=== PATIENT | male | born 1930 | race Caucasian/White ===

== ENCOUNTER 2018-11-27 14:49 | Inpatient (IN) ==
[2018-11-27] MEDS ORDERED: Sod Chloride 0.9% Inj 1,000 ML IV.SIG SCH (15:30)
--- NOTE | 2018-11-27 15:30 | ED ---
HPI General Chief complaint: Fever Stated complaint: fever Time Seen by Provider: 11/27/18 15:03 Source: patient, family and EMS Mode of arrival: EMS Limitations: altered mental status History of Present Illness HPI narrative: This 88-year-old male is brought by paramedics. His noted that he was very tired this morning would not get out of bed. He had gotten out of bed but then went back to sleep. He does have a history of some memory problems. She he went to see Dr. Chapman yesterday. He is evaluating him for incontinence. He did have a cystoscopy done yesterday. He says he was given a tablet to take at home but he does not think he took it. He did have some vomiting this morning his found him at noon shaking and shivering. He was awake. says his temperature was 102 at home. He is currently on lisinopril Protonix and Rapaflo. He has not been coughing. He has been urinating frequently Related Data Home Medications Medication Instructions Recorded Confirmed lisinopril 10 mg PO DAILY 11/27/18 11/27/18 pantoprazole [Protonix] 40 mg PO DAILY 11/27/18 11/27/18 silodosin [Rapaflo] 8 mg PO DAILY 11/27/18 11/27/18 Allergies Allergy/AdvReac Type Severity Reaction Status Date / Time No Known Allergies Allergy Uncoded 10/22/14 11:30 Review of Systems ROS: all other systems reviewed are negative Constitutional Reports chills, Reports fever(s) and Reports lethargy Respiratory Denies cough Genitourinary Reports urinary incontinence [facility] Medical History Medical History GERD (gastroesophageal reflux disease) (Acute) HTN (hypertension) (Acute) Social History Social History Substance History: No History of Abuse Smoking Status: Unknown if ever smoked How Often Do You Have a Drink Containing Alcohol: Unable to Obtain Recent Travel in [facility] within the Last 8 Weeks: No Recent Out of Country Travel within the Last 8 Weeks: No Immunization History Tetanus Immunization: Unsure Exam Narrative Exam Narrative: GENERAL: Well-developed male. He is cooperative. Temp on arrival is 100.0 with pulse of 103 SKIN: Focused skin assessment warm/dry. HEAD: Atraumatic. Normocephalic. EYES: Pupils equal and round. No scleral icterus. No injection or drainage. ENT: No nasal bleeding or discharge. Mucous membranes pink and moist. NECK: Trachea midline. No JVD. CARDIOVASCULAR: Regular rate and rhythm. There is a systolic murmur RESPIRATORY: No accessory muscle use. Clear to auscultation. Breath sounds equal bilaterally. GASTROINTESTINAL: Abdomen soft, non-tender, nondistended. Hepatic and splenic margins not palpable. MUSCULOSKELETAL: No obvious deformities. No clubbing. No cyanosis. No edema. NEUROLOGICAL: Awake and alert. No obvious cranial nerve deficits. Motor grossly within normal limits. Normal speech. He is not oriented to the year though he is oriented to the day of the year PSYCHIATRIC: Insight appears somewhat limited Course Initial Documented Vital Signs Temperature 100.0 F H 11/27/18 14:56 Pulse Rate 103 H 11/27/18 14:56 Respiratory Rate 18 11/27/18 14:56 Blood Pressure 186/91 H 11/27/18 14:56 Pulse Oximetry 96 11/27/18 14:56 Last Documented Vital Signs Temperature 100.0 F H 11/27/18 14:56 Pulse Rate 103 H 11/27/18 14:56 Respiratory Rate 18 11/27/18 14:56 Blood Pressure 186/91 H 11/27/18 14:56 Pulse Oximetry 96 11/27/18 14:56 Sign Out Sign Out Data: Patient Sign Out occurred on 11/27/18 at 16:14. Patient's care was discussed, and care was transferred from Francesco Castellanos MD to Soren Medina MD. Sign Out Comment: Patient had temp of 102-103 at home. Sepsis workup is underway Last updated by Francesco Castellanos MD at 11/27/18 15:55 Post-Handoff Eval: This case is checked out to me by Dr. Palacio at 4 PM. He recommended hospitalization after the workup is complete.'s an 88-year-old demented male with temp of 103 today and some generalized global symptoms such as weakness and lethargy. Source is not clear. Urine is clean and chest x-ray normal. He has no meningeal signs on exam. He has been given IV antibiotic after blood cultures were obtained. Case is reviewed with hospitalist who recommends observation status. Medical Decision Making MDM Narrative Medical Screen Exam Complete: Yes Emergency Medical Condition: Yes Differential Diagnosis Differential Diagnosis: Differential includes delirium, sepsis, UTI, pneumonia Lab Data Result diagrams: 11/27/18 15:20 11/27/18 15:20 Lab Results 11/27/18 11/27/18 11/27/18 Range/Units 15:20 15:20 15:20 CBC w Diff Slide review pending WBC 12.9 H (4.0-11.0) th/mm3 RBC 4.89 (4.50-5.90) mil/mm3 Hgb 14.4 (13.0-17.0) gm/dL Hct 43.9 (39.0-51.0) % MCV 89.7 (80.0-100.0) fL MCH 29.3 (27.0-34.0) pg MCHC 32.7 (32.0-36.0) % RDW 13.9 (11.6-17.2) % Plt Count 191 (150-450) th/mm3 MPV 8.9 (7.0-11.0) fL Neut % (Auto) 88.8 H (16.0-70.0) % Lymph % (Auto) 3.1 L (9.0-44.0) % [place] % (Auto) 6.3 (0.0-8.0) % Eos % (Auto) 0.2 (0.0-4.0) % Baso % (Auto) 1.6 (0.0-2.0) % Neut # (Auto) 11.5 H (1.8-7.7) th/mm3 Lymph # (Auto) 0.4 L (1.0-4.8) th/mm3 [place] # (Auto) 0.8 (0.0-0.9) th/mm3 Eos # (Auto) 0.0 (0.0-0.4) th/mm3 Baso # (Auto) 0.2 (0.0-0.2) th/mm3 WBC Differential Manual diff final Seg Neuts % (Manual) 88 H (16-70) % Band Neuts % (Manual) 5 (0-6) % Lymphocytes % (Manual) 2 L (9-44) % Monocytes % (Manual) 5 (0-8) % Abs Neuts (Manual) 12.0 H (1.8-7.7) th/mm3 Differential Comment . Platelet Estimate Normal (Normal) Platelet Morphology Normal (Normal) Sodium 142 (136-145) meq/L Potassium 3.4 L (3.5-5.1) meq/L Chloride 111 H (98-107) meq/L Carbon Dioxide 22.1 (21.0-32.0) meq/L Anion Gap 9 (5-15) meq/L BUN 22 H (7-18) mg/dL Creatinine 0.93 (0.60-1.30) mg/dL Estimated GFR 77 L (>89) mL/min Random Glucose 116 H (74-106) mg/dL Lactic Acid 1.5 (0.4-2.0) mmol/L Calcium 7.8 L (8.5-10.1) mg/dL Magnesium 1.6 (1.5-2.5) mg/dL Total Bilirubin 0.8 (0.2-1.0) mg/dL AST 15 (15-37) U/L ALT 18 (12-78) U/L Alkaline Phosphatase 58 (45-117) U/L Total Protein 7.1 (6.4-8.2) g/dL Albumin 3.5 (3.4-5.0) g/dL Urine Color (Yellw/Straw) Urine Clarity (Clear) Urine pH (5.0-8.5) Ur Specific [place] (1.002-1.035) Urine Protein (Neg-Trace) mg/dL Urine Glucose (UA) (Negative) mg/dL Urine Ketones (Negative) mg/dL Urine Occult Blood (Negative) Urine Nitrate (Negative) Urine Bilirubin (Negative) Urine Urobilinogen (Less than 2) mg/dL Ur Leukocyte Esterase (Negative) Urine RBC (0-3) /hpf Urine WBC (0-5) /hpf Micro UA Comment Ur Microscopic Review Urine Culture Comments 11/27/18 Range/Units 15:30 CBC w Diff WBC (4.0-11.0) th/mm3 RBC (4.50-5.90) mil/mm3 Hgb (13.0-17.0) gm/dL Hct (39.0-51.0) % MCV (80.0-100.0) fL MCH (27.0-34.0) pg MCHC (32.0-36.0) % RDW (11.6-17.2) % Plt Count (150-450) th/mm3 MPV (7.0-11.0) fL Neut % (Auto) (16.0-70.0) % Lymph % (Auto) (9.0-44.0) % Churchill % (Auto) (0.0-8.0) % Eos % (Auto) (0.0-4.0) % Baso % (Auto) (0.0-2.0) % Neut # (Auto) (1.8-7.7) th/mm3 Lymph # (Auto) (1.0-4.8) th/mm3 [place] # (Auto) (0.0-0.9) th/mm3 Eos # (Auto) (0.0-0.4) th/mm3 Baso # (Auto) (0.0-0.2) th/mm3 WBC Differential Seg Neuts % (Manual) (16-70) % Band Neuts % (Manual) (0-6) % Lymphocytes % (Manual) (9-44) % Monocytes % (Manual) (0-8) % Abs Neuts (Manual) (1.8-7.7) th/mm3 Differential Comment Platelet Estimate (Normal) Platelet Morphology (Normal) Sodium (136-145) meq/L Potassium (3.5-5.1) meq/L Chloride (98-107) meq/L Carbon Dioxide (21.0-32.0) meq/L Anion Gap (5-15) meq/L BUN (7-18) mg/dL Creatinine (0.60-1.30) mg/dL Estimated GFR (>89) mL/min Random Glucose (74-106) mg/dL Lactic Acid (0.4-2.0) mmol/L Calcium (8.5-10.1) mg/dL Magnesium (1.5-2.5) mg/dL Total Bilirubin (0.2-1.0) mg/dL AST (15-37) U/L ALT (12-78) U/L Alkaline Phosphatase (45-117) U/L Total Protein (6.4-8.2) g/dL Albumin (3.4-5.0) g/dL Urine Color Straw (Yellw/Straw) Urine Clarity Clear (Clear) Urine pH 6.5 (5.0-8.5) Ur Specific [place] 1.010 (1.002-1.035) Urine Protein Negative (Neg-Trace) mg/dL Urine Glucose (UA) Negative (Negative) mg/dL Urine Ketones Negative (Negative) mg/dL Urine Occult Blood Trace (Negative) Urine Nitrate Negative (Negative) Urine Bilirubin Negative (Negative) Urine Urobilinogen 0.2 (Less than 2) mg/dL Ur Leukocyte Esterase Negative (Negative) Urine RBC 0-3 (0-3) /hpf Urine WBC 0-5 (0-5) /hpf Micro UA Comment Culture not ind Ur Microscopic Review Microscopic reviewed Urine Culture Comments Culture not ind Imaging Data Radiologist's impression: Chest X-Ray 11/27/18 15:12 CONCLUSION: No acute intrathoracic disease. Head CT 11/27/18 15:12 CONCLUSION: 1. No focal or acute intracranial hemorrhage. 2. Bilateral cortical atrophy and chronic white matter changes characteristic for patient's age. 3. 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 . Discharge Plan Discharge Disposition Patient Disposition: ED Admit(ED Internal Use Only) Discharge Details Diagnosis: Fever and chills, Generalized weakness Physicians Team ED Provider: Soren Medina Primary Care Provider: [facility] /Orders / Referrals /Forms Prescriptions: No Action pantoprazole [Protonix] 40 mg Tablet,Delayed Release (Dr/Ec) 40 mg PO DAILY RF: 0 lisinopril 10 mg Tablet 10 mg PO DAILY RF: 0 silodosin [Rapaflo] 8 mg Capsule 8 mg PO DAILY RF: 0 Status ED Status: With Doctor
[2018-11-27 15:39] LABS: Bilirubin,Urine Negative (Negative); Clarity,Urine Clear (Clear); Glucose,Urine (UA) Negative (Negative); Leukocyte Esterase,Urine Negative (Negative); Nitrite,Urine Negative (Negative); PH,Urine 6.5 (5.0-8.5); Urobilinogen,Urine 0.2 mg/dL (Less than 2)
[2018-11-27 15:43] LABS: Baso # (Auto) 0.2 th/mm3 (0.0-0.2); Baso % (Auto) 1.6 % (0.0-2.0); Eos % (Auto) 0.2 % (0.0-4.0); Hematocrit 43.9 % (39.0-51.0); Hemoglobin 14.4 gm/dL (13.0-17.0); Lymph # (Auto) 0.4 th/mm3 (1.0-4.8); Lymph % (Auto) 3.1 % (9.0-44.0); Mean Corpuscular HGB Conc 32.7 % (32.0-36.0); Mean Corpuscular Hemoglobin 29.3 pg (27.0-34.0); Mean Corpuscular Volume 89.7 fL (80.0-100.0); Mean Platelet Volume 8.9 fL (7.0-11.0); Mono # (Auto) 0.8 th/mm3 (0.0-0.9); Mono % (Auto) 6.3 % (0.0-8.0); Neut # (Auto) 11.5 th/mm3 (1.8-7.7); Neut % (Auto) 88.8 % (16.0-70.0); Platelet Count 191 th/mm3 (150-450); Red Blood Count 4.89 mil/mm3 (4.50-5.90); Red Cell Distribution Width 13.9 % (11.6-17.2); White Blood Count 12.9 th/mm3 (4.0-11.0)
[2018-11-27 15:56] LABS: Color,Urine Straw (Yellw/Straw)
[2018-11-27 15:58] LABS: RBC,Urine 0-3 /hpf (0-3)
[2018-11-27 15:59] LABS: WBC,Urine 0-5 /hpf (0-5)
[2018-11-27 15:59] LABS: Chloride 111 meq/L (98-107); Potassium 3.4 meq/L (3.5-5.1); Sodium 142 meq/L (136-145)
[2018-11-27] MEDS ORDERED: Piperacil/Tazo 4.5 GM Premix 4.5 GM/100 ML BAG IV.SIG SCH (16:00)
[2018-11-27 16:03] LABS: Albumin 3.5 g/dL (3.4-5.0); Anion Gap 9 meq/L (5-15); Blood Urea Nitrogen 22 mg/dL (7-18); Calcium 7.8 mg/dL (8.5-10.1); Carbon Dioxide 22.1 meq/L (21.0-32.0); Glucose,Random 116 mg/dL (74-106); Magnesium 1.6 mg/dL (1.5-2.5)
[2018-11-27 16:06] LABS: Alanine Aminotransferase 18 U/L (12-78); Aspartate Aminotransferase 15 U/L (15-37); Glomerular Filtration Rate 77 mL/min (>89)
--- NOTE | 2018-11-27 16:06 | XR ---
EXAM DATE: 11/27/2018 3:48 PM EST AGE/SEX: 88 years / Male INDICATIONS: Fever. CLINICAL DATA: This is the patient's initial encounter. Patient reports that signs and symptoms have been present for 1 day and indicates a pain score of Nonresponsive. MEDICAL/SURGICAL HISTORY: Non-responsive. Abdominal aortic aneurysm repair. COMPARISON: No prior exams available for comparison. FINDINGS: A single AP view of the chest demonstrates the lungs to be symmetrically aerated without evidence of mass, infiltrate or effusion. The cardiomediastinal contours are unremarkable. Osseous structures a re intact. There are some old healed right-sided rib fractures. CONCLUSION: No acute intrathoracic disease. Electronically signed by: Rj Navarro MD Board Certified Radiologist 11/27/2018 4:05 PM EST
[2018-11-27 16:08] LABS: Total Protein 7.1 g/dL (6.4-8.2)
[2018-11-27 16:09] LABS: Alkaline Phosphatase 58 U/L (45-117)
--- NOTE | 2018-11-27 16:23 | CT ---
EXAM DATE: 11/27/2018 4:19 PM EST AGE/SEX: 88 years / Male INDICATIONS: Altered mental status. Fever. CLINICAL DATA: This is the patient's initial encounter. Patient reports that signs and symptoms have been present for 1 day and indicates a pain score of 0/10. MEDICAL/SURGICAL HISTORY: Gastroesophageal reflux disease. Hypertension. None. RADIATION DOSE: 59.46 CTDI (mGy) ; Patient motion COMPARISON: No prior exams available for comparison. TECHNIQUE: CT of the head without contrast. Using automated exposure control and adjustment of the mA and/or kV according to patient size, radiation dose was kept as low as reasonably achievable to ob tain optimal diagnostic quality images. DICOM format image data is available electronically for revi ew and comparison. FINDINGS: Cerebrum: The ventricles are normal for age. There is bilateral cortical atrophy and chronic white m atter changes characteristic for patient's age. There are several old lacunar infarcts in the basal g anglia regions bilaterally. There is a focal area of porencephaly involving the posterior high left c erebral vertex. No evidence of midline shift, mass lesion, hemorrhage or acute infarction. No extraa xial fluid collections are seen. Posterior Fossa: The cerebellum and brainstem are intact. The 4th ventricle is midline. The cerebe llopontine angle is unremarkable. Extracranial: The visualized portion of the orbits is intact. Skull: The calvaria is intact. No evidence of skull fracture. CONCLUSION: 1. No focal or acute intracranial hemorrhage. 2. Bilateral cortical atrophy and chronic white matter changes characteristic for patient's age. 3. 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 . Electronically signed by: Rj Navarro MD Board Certified Radiologist 11/27/2018 4:22 PM EST
[2018-11-27 16:27] LABS: Lymphocytes 2 % (9-44); Monocytes 5 % (0-8)
[2018-11-27 16:29] LABS: Platelet Estimate Normal (Normal); Platelet Morphology Normal (Normal)
[2018-11-27] MEDS ORDERED: Sod Chloride 0.9% Inj 1,000 ML IV.CONT SCH (17:00)
[2018-11-27] MEDS ORDERED: Acetaminophen 325 MG Tablet PO PRN (17:00)
[2018-11-27] MEDS ORDERED: Bisacodyl 10 MG Supp RECTAL PRN (18:00)
[2018-11-27] MEDS: levoFLOXacin 750 MG Tablet PO SCH (18:49)
--- NOTE | 2018-11-27 18:56 | P.HPIM ---
History of Present Illness Primary Care Physician: [facility] History of Present Illness: 88-year-old male with history of GERD, hypertension, BPH who is brought in by his . Patient had vomiting this morning which apparently is not uncommon for him. Following this he had a fever up to 102, what sounds to be Rigors. Patient also reports dysuria following a cystoscopy yesterday. denies that patient had a biopsy yesterday. Patient also reports a dull frontal headache worse this morning which is now almost completely resolved-denies any neck stiffness. Patient reports a history of occasional headaches. Review of Systems All other systems reviewed negative except as stated in HPI PMFSH - History History Provided By: Patient, Assistant Controller / EMT - Medical History Medical History: Medical History (Last Reviewed 11/27/18 @ 18:45 by Franky Kemp MD) GERD (gastroesophageal reflux disease) HTN (hypertension) - Surgical History Surgical History: Surgical History (Last Updated 11/27/18 @ 18:46 by Franky Kemp MD) H/O lithotripsy Previous back surgery - Family History Family History: Family History (Last Updated 11/27/18 @ 18:46 by Franky Kemp MD) Father Heart disease - Tobacco History Smoking Status: Unknown if ever smoked - Alcohol History How Often Do You Have a Drink Containing Alcohol: Unable to Obtain - Substance Use History Substance History: No History of Abuse - Travel History Recent Travel in the [place] Within the Last 8 Weeks: No Recent Travel Out of the Country Within the Last 8 Weeks: No - Immunization History Tetanus Immunization: Unsure Medications and Allergies Active Medications: Active Medications Acetaminophen (Tylenol) 650 mg PO Q4H PRN PRN Reason: Temp > 100.4 Al Hydroxide/Mg Hydroxide (Milk Of Adonis Lidoreen) 30 ml PO Q12H PRN PRN Reason: Mild Constipation Bisacodyl (Dulcolax Supp) 10 mg RECTAL DAILY PRN PRN Reason: SEVERE CONSITIPATION Piperacillin/Tazobactam/Dextrose (Zosyn 4.5 Gm Premix) 4.5 gm in 100 mls @ 200 mls/hr IV.SIG ONCE RAMAN Last Infusion: 11/27/18 17:00 Dose: Infused Sodium Chloride (Ns Inj) 1,000 mls @ 50 mls/hr IV.CONT .Q20H RAMAN Ampicillin Sodium/Sulbactam (Sodium 3 gm/ Sodium Chloride) 100 mls @ 200 mls/ hr IV.SIG Q6H RAMAN Lactulose (Lactulose Liq) 30 ml PO DAILY PRN PRN Reason: SEVERE CONSITIPATION Levofloxacin (Levaquin) 750 mg PO DAILY@1100 [facility] Ondansetron HCl (Zofran Inj) 4 mg IV.PUSH Q6H PRN PRN Reason: NAUSEA OR VOMITING Pantoprazole Sodium (Protonix) 40 mg PO DAILY [facility] Sennosides (Senokot) 17.2 mg PO Q12H PRN PRN Reason: Moderate Constipation Sodium Chloride (Ns Flush) 2 ml IV.FLUSH BID RAMAN Sodium Chloride (Ns Flush) 2 ml IV.FLUSH PRN PRN PRN Reason: FLUSH AFTER USING IV ACCESS Tamsulosin HCl (Flomax) 0.4 mg PO DAILY [facility] Allergies Allergy/AdvReac Type Severity Reaction Status Date / Time No Known Allergies Allergy Uncoded 10/22/14 11:30 Home Medications Medication Instructions Recorded Confirmed Type lisinopril 10 mg PO DAILY 11/27/18 11/27/18 History pantoprazole [Protonix] 40 mg PO DAILY 11/27/18 11/27/18 History silodosin [Rapaflo] 8 mg PO DAILY 11/27/18 11/27/18 History Exam Vital signs: Vital Signs 11/27/18 14:56 Temperature 100.0 F H Pulse Rate 103 H Respiratory Rate 18 Blood Pressure 186/91 H Pulse Oximetry 96 Intake & Output 11/26/18 11/27/18 11/27/18 18:59 06:59 18:59 Intake Total 1100 / 1100 Balance 1100 / 1100 Weight 80.739 kg Intake: IV 1100 / 1100 Zosyn 4.5 GM Premix 4.5 gm In 100 / 100 100 ml @ 200 mls/hr IV.SIG ONCE RAMAN Rx#:[id number] NS Inj 1,000 ML @ 1000 mls/hr 1000 / 1000 IV.SIG BOLUS RAMAN Rx#:[id number] Narrative: GENERAL: Patient sitting up in bed. Appears comfortable. Alert and oriented x3. SKIN: Warm and dry. HEAD: Atraumatic. Normocephalic. EYES: Pupils equal and round. No scleral icterus. No injection or drainage. ENT: No nasal bleeding or discharge. Mucous membranes pink and moist. NECK: Trachea midline. No JVD. CARDIOVASCULAR: Regular rate and rhythm. RESPIRATORY: No accessory muscle use. Clear to auscultation. Breath sounds equal bilaterally. GASTROINTESTINAL: Abdomen soft, non-tender, nondistended. Hepatic and splenic margins not palpable. MUSCULOSKELETAL: Extremities without clubbing, cyanosis, or edema. No obvious deformities. NEUROLOGICAL: Awake and alert. No obvious cranial nerve deficits. Motor grossly within normal limits. Five out of 5 muscle strength in the arms and legs. Normal speech. No meningismal signs. PSYCHIATRIC: Appropriate mood and affect; insight and judgment normal. Results - Labs CBC & Chem 7: 11/27/18 15:20 11/27/18 15:20 Labs: Short CBC 11/27/18 Range/Units 15:20 WBC 12.9 H (4.0-11.0) th/mm3 Hgb 14.4 (13.0-17.0) gm/dL Hct 43.9 (39.0-51.0) % Plt Count 191 (150-450) th/mm3 BMP 11/27/18 15:20 Sodium 142 Potassium 3.4 L Chloride 111 H Carbon Dioxide 22.1 BUN 22 H Creatinine 0.93 Calcium 7.8 L Liver Function 11/27/18 Range/Units 15:20 Total Bilirubin 0.8 (0.2-1.0) mg/dL AST 15 (15-37) U/L ALT 18 (12-78) U/L Alkaline Phosphatase 58 (45-117) U/L Albumin 3.5 (3.4-5.0) g/dL Urine 11/27/18 Range/Units 15:30 Urine Color Straw (Yellw/Straw) Urine Clarity Clear (Clear) Urine pH 6.5 (5.0-8.5) Ur Specific [place] 1.010 (1.002-1.035) Urine Protein Negative (Neg-Trace) mg/dL Urine Glucose (UA) Negative (Negative) mg/dL - Imaging Impressions Chest X-Ray 11/27/18 15:12 CONCLUSION: No acute intrathoracic disease. Head CT 11/27/18 15:12 CONCLUSION: 1. No focal or acute intracranial hemorrhage. 2. Bilateral cortical atrophy and chronic white matter changes characteristic for patient's age. 3. 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 . Caprini VTE Risk Assessment Caprini VTE Risk Assessment: Moderate/High Risk (score >= 2) Caprini Risk Assessment Model: Point Value = 1 Point Value = 2 Point Value = 3 Point Value = 5 Age 41-60 Minor surgery BMI > 25 kg/m2 Swollen legs Varicose veins or History of unexplained or recurrent spontaneous Oral contraceptives or hormone replacement Sepsis (< 1 month) Serious lung disease, including pneumonia (< 1 month) Abnormal pulmonary function Acute myocardial infarction Congestive heart failure (< 1 month) History of inflammatory bowel disease Medical patient at bed rest Age 61-74 Arthroscopic surgery Major open surgery (> 45 min) Laparoscopic surgery (> 45 min) Malignancy Confined to bed (> 72 hours) Immobilizing plaster cast Central venous access Age >= 75 History of VTE Family history of VTE Factor V Leiden Prothrombin [id number] Lupus anticoagulant Anticardiolipin antibodies Elevated serum homocysteine Heparin-induced thrombocytopenia Other congenital or acquired thrombophilia Stroke (< 1 month) Elective arthroplasty Hip, pelvis, or leg fracture Acute spinal cord injury (< 1 month) Prophylaxis Regimen: Total Risk Factor Score Risk Level Prophylaxis Regimen 0-1 Low Early ambulation 2 Moderate Order ONE of the following: *Sequential Compression Device (SCD) *Heparin 5000 units SQ BID 3-4 Higher Order ONE of the following medications: *Heparin 5000 units SQ TID *Enoxaparin/Lovenox 40 mg SQ daily (WT < 150 kg, CrCl > 30 mL/min) *Enoxaparin/Lovenox 30 mg SQ daily (WT < 150 kg, CrCl > 10-29 mL/min) *Enoxaparin/Lovenox 30 mg SQ BID (WT < 150 kg, CrCl > 30 mL/min) AND/OR *Sequential Compression Device (SCD) 5 or more Highest Order ONE of the following medications: *Heparin 5000 units SQ TID (Preferred with Epidurals) *Enoxaparin/Lovenox 40 mg SQ daily (WT < 150 kg, CrCl > 30 mL/min) *Enoxaparin/Lovenox 30 mg SQ daily (WT < 150 kg, CrCl > 10-29 mL/min) *Enoxaparin/Lovenox 30 mg SQ BID (WT < 150 kg, CrCl > 30 mL/min) AND *Sequential Compression Device (SCD) Assessment and Plan - Plan //SIRS criteria of tachycardia, leukocytosis //possible aspiration pneumonitis //Possible prostatitis -Patient had episode of this morning with rigors following. Patient also has dysuria following cystoscopy yesterday. Will start on broad-spectrum antibiotics to cover aspiration. No nausea or vomiting currently. Will repeat urinalysis as first urinalysis suspiciously clean. Check PSA. -We will check respiratory panel -We will call Dr. Chapman's office tomorrow to inquire as to what procedure was done. Otherwise patient is hemodynamically stable. Will monitor overnight. //Hypertension. Chronic. Blood pressure acceptable. Will add //GERD. Chronic. Continue home medications. //BPH. chronic. cont home meds. Discussed Condition With: Patient, nurse, ED physician
[2018-11-27] MEDS: Ampicillin/Sulbactam Inj 3 GM in Sodium Chloride 0.9% Inj 100 ML IV.SIG SCH (21:39)
[2018-11-28] MEDS: Ampicillin/Sulbactam Inj 3 GM in Sodium Chloride 0.9% Inj 100 ML IV.SIG SCH ×4 (04:03→21:14)
[2018-11-28 06:24] LABS: Chloride 109 meq/L (98-107); Potassium 3.6 meq/L (3.5-5.1); Sodium 143 meq/L (136-145)
[2018-11-28 06:28] LABS: Calcium 8.2 mg/dL (8.5-10.1)
[2018-11-28 06:29] LABS: Albumin 3.2 g/dL (3.4-5.0); Anion Gap 8 meq/L (5-15); Blood Urea Nitrogen 18 mg/dL (7-18); Carbon Dioxide 25.6 meq/L (21.0-32.0); Glucose,Random 116 mg/dL (74-106)
[2018-11-28 06:32] LABS: Alanine Aminotransferase 15 U/L (12-78); Aspartate Aminotransferase 20 U/L (15-37); Glomerular Filtration Rate 77 mL/min (>89)
[2018-11-28 06:33] LABS: Total Protein 6.8 g/dL (6.4-8.2)
[2018-11-28 06:35] LABS: Alkaline Phosphatase 51 U/L (45-117)
[2018-11-28 06:41] LABS: Baso % (Auto) 0.1 % (0.0-2.0); Eos % (Auto) 0.1 % (0.0-4.0); Hematocrit 40.5 % (39.0-51.0); Hemoglobin 13.8 gm/dL (13.0-17.0); Lymph % (Auto) 6.8 % (9.0-44.0); Mean Corpuscular HGB Conc 34.1 % (32.0-36.0); Mean Corpuscular Hemoglobin 30.5 pg (27.0-34.0); Mean Corpuscular Volume 89.3 fL (80.0-100.0); Mean Platelet Volume 8.3 fL (7.0-11.0); Mono # (Auto) 1.2 th/mm3 (0.0-0.9); Mono % (Auto) 8.1 % (0.0-8.0); Neut # (Auto) 12.4 th/mm3 (1.8-7.7); Neut % (Auto) 84.9 % (16.0-70.0); Platelet Count 186 th/mm3 (150-450); Red Blood Count 4.53 mil/mm3 (4.50-5.90); Red Cell Distribution Width 13.4 % (11.6-17.2); White Blood Count 14.6 th/mm3 (4.0-11.0)
[2018-11-28] MEDS ORDERED: Vancomycin Consult Pharmacy OTHER PRN (10:45)
--- NOTE | 2018-11-28 10:56 | P.PNIM ---
Subjective Interval history: Patient continues to report a dull headache, however says this is mild, and continues to deny any pain with movement of his head. Physical Exam Vital signs: Vital Signs 11/27/18 14:56 11/27/18 20:00 11/28/18 00:00 Temperature 100.0 F H 97.9 F 97.8 F Pulse Rate 103 H 82 84 Respiratory Rate 18 18 18 Blood Pressure 186/91 H 131/63 133/65 Pulse Oximetry 96 98 99 11/28/18 08:00 Temperature 98.2 F Pulse Rate 68 Respiratory Rate 18 Blood Pressure 172/77 H Pulse Oximetry 96 Intake & Output 11/27/18 11/28/18 11/28/18 18:59 06:59 18:59 Intake Total 1340 / 1340 200 / 200 200 / 200 Output Total 200 / 200 600 / 600 Balance 1140 / 1140 -400 / -400 200 / 200 Weight 80.739 kg 67.6 kg Intake: IV 1100 / 1100 200 / 200 200 / 200 Unasyn Inj 3 GM In NS Inj 100 200 / 200 100 / 100 ML @ 200 mls/hr IV.SIG Q6H RAMAN Rx#:[id number] Zosyn 4.5 GM Premix 4.5 gm In 100 / 100 100 ml @ 200 mls/hr IV.SIG ONCE RAMAN Rx#:[id number] NS Inj 1,000 ML @ 1000 mls/hr 1000 / 1000 IV.SIG BOLUS RAMAN Rx#:[id number] Oral 240 / 240 Output: Urine 200 / 200 600 / 600 Other: # Voids 2 # Bowel Movements 2 Weight On Admission 67.6 kg Narrative: GENERAL: Patient lying in bed. Appears comfortable. SKIN: Warm and dry. HEAD: Normocephalic. EYES: No scleral icterus. No injection or drainage. NECK: Supple, trachea midline. No JVD. CARDIOVASCULAR: Regular rate and rhythm without murmurs, gallops, or rubs. RESPIRATORY: Breath sounds equal bilaterally. No accessory muscle use. GASTROINTESTINAL: Abdomen soft, non-tender, nondistended. MUSCULOSKELETAL: No cyanosis, or edema. BACK: Nontender without obvious deformity. No CVA tenderness. Results - Labs CBC & Chem 7: 11/28/18 05:45 11/28/18 05:45 Laboratory Results - last 24 hr 11/27/18 11/27/1811/27/19 15:20 15:20 15:20 CBC w Diff Slide review pending WBC 12.9 H RBC 4.89 Hgb 14.4 Hct 43.9 MCV 89.7 MCH 29.3 MCHC 32.7 RDW 13.9 Plt Count 191 MPV 8.9 Neut % (Auto) 88.8 H Lymph % (Auto) 3.1 L [place] % (Auto) 6.3 Eos % (Auto) 0.2 Baso % (Auto) 1.6 Neut # (Auto) 11.5 H Lymph # (Auto) 0.4 L [place] # (Auto) 0.8 Eos # (Auto) 0.0 Baso # (Auto) 0.2 WBC Differential Manual diff final Seg Neuts % (Manual) 88 H Band Neuts % (Manual) 5 Lymphocytes % (Manual) 2 L Monocytes % (Manual) 5 Abs Neuts (Manual) 12.0 H Differential Comment . Platelet Estimate Normal Platelet Morphology Normal Sodium 142 Potassium 3.4 L Chloride 111 H Carbon Dioxide 22.1 Anion Gap 9 BUN 22 H Creatinine 0.93 Estimated GFR 77 L Random Glucose 116 H Lactic Acid 1.5 Calcium 7.8 L Magnesium 1.6 Total Bilirubin 0.8 AST 15 ALT 18 Alkaline Phosphatase 58 Total Protein 7.1 Albumin 3.5 Urine Color Urine Clarity Urine pH Ur Specific [place] Urine Protein Urine Glucose (UA) Urine Ketones Urine Occult Blood Urine Nitrate Urine Bilirubin Urine Urobilinogen Ur Leukocyte Esterase Urine RBC Urine WBC Micro UA Comment Ur Microscopic Review Urine Culture Comments 11/27/18 11/28/18 11/28/18 15:30 05:45 05:45 CBC w Diff Auto diff final WBC 14.6 H RBC 4.53 Hgb 13.8 Hct 40.5 MCV 89.3 MCH 30.5 MCHC 34.1 RDW 13.4 Plt Count 186 MPV 8.3 Neut % (Auto) 84.9 H Lymph % (Auto) 6.8 L [place] % (Auto) 8.1 H Eos % (Auto) 0.1 Baso % (Auto) 0.1 Neut # (Auto) 12.4 H Lymph # (Auto) 1.0 [place] # (Auto) 1.2 H Eos # (Auto) 0.0 Baso # (Auto) 0.0 WBC Differential . Seg Neuts % (Manual) Band Neuts % (Manual) Lymphocytes % (Manual) Monocytes % (Manual) Abs Neuts (Manual) Differential Comment . Platelet Estimate Platelet Morphology Sodium 143 Potassium 3.6 Chloride 109 H Carbon Dioxide 25.6 Anion Gap 8 BUN 18 Creatinine 0.93 Estimated GFR 77 L Random Glucose 116 H Lactic Acid Calcium 8.2 L Magnesium Total Bilirubin 0.7 AST 20 ALT 15 Alkaline Phosphatase 51 Total Protein 6.8 Albumin 3.2 L Urine Color Straw Urine Clarity Clear Urine pH 6.5 Ur Specific [place] 1.010 Urine Protein Negative Urine Glucose (UA) Negative Urine Ketones Negative Urine Occult Blood Trace Urine Nitrate Negative Urine Bilirubin Negative Urine Urobilinogen 0.2 Ur Leukocyte Esterase Negative Urine RBC 0-3 Urine WBC 0-5 Micro UA Comment Culture not ind Ur Microscopic Review Microscopic reviewed Urine Culture Comments Culture not ind Microbiology 11/27/18 15:20 Blood - Peripheral Anaerobic Blood Culture - Preliminary 11/27/18 15:30 Nasal Wash Influenza Types A,B Antigen - Final Negative for FLU A and B antigen Infection due to influenza A or B cannot be ruled out since the antigen present in the sample may be below the detection limit of the test. - Imaging Impressions Chest X-Ray 11/27/18 15:12 CONCLUSION: No acute intrathoracic disease. Head CT 11/27/18 15:12 CONCLUSION: 1. No focal or acute intracranial hemorrhage. 2. Bilateral cortical atrophy and chronic white matter changes characteristic for patient's age. 3. 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 . Assessment and Plan - Plan //SIRS criteria of tachycardia, leukocytosis //possible aspiration pneumonitis //Possible prostatitis //Gram-positive bacteremia -Patient had episode of this morning with rigors following. Patient also has dysuria following cystoscopy yesterday. Will start on broad-spectrum antibiotics to cover aspiration. No nausea or vomiting currently. Will repeat urinalysis as first urinalysis suspiciously clean. Check PSA. -We will check respiratory panel -We will call Dr. Chapman's office tomorrow to inquire as to what procedure was done. Otherwise patient is hemodynamically stable. Will monitor overnight. = 1/. Gram-positive cocci in pairs and chains on blood culture. Will repeat blood culture, check echocardiogram and consult infectious disease. Start on vancomycin. PSA also pending. Continue on Augmentin for possible aspiration as well. Appreciate ID assistance. //Hypertension. Chronic. Blood pressure acceptable. //GERD. Chronic. Continue home medications. //BPH. chronic. cont home meds. Discussed Condition With: Patient, nurse, at bedside. Discharge Planning: Likely home in 2 days We will need ID clearance.
[2018-11-28] MEDS: levoFLOXacin 750 MG Tablet PO SCH (11:44)
[2018-11-28] MEDS: Lisinopril 10 MG Tablet PO SCH (11:44)
--- NOTE | 2018-11-28 13:41 | ECG ---
Date Performed: 11/27/2018 Time Performed: 15:27:55 PTAGE: 88 years EKG: SINUS TACHYCARDIA RIGHT BUNDLE BRANCH BLOCK ABNORMAL ECG NO PREVIOUS TRACING DOCTOR: Mj Kinsey Interpretating Date/Time 11/28/2018 13:30:30
[2018-11-28] MEDS ORDERED: Vancomycin Inj 1,250 MG in Sodium Chlor 0.9% Inj 250 ML IV.SIG ONE (14:00)
--- NOTE | 2018-11-28 15:02 | P.CONID ---
History of Present Illness Service: Infectious disease Consult date: 11/28/18 Requesting Physician: Franky Kemp Reason for Consult: Evaluate patient with bacteremia Primary Care Provider: [facility] History of Present Illness: Patient seen and examined. Records reviewed. Patient is a very poor historian. Patient is an 88-year-old male, brought into the hospital for evaluation of high fevers associated with rigors. Patient apparently was referred to a urologist for evaluation of urinary incontinence. On November 26 he was seen again, and had a procedure done. He had a cystoscopy, and there was also something inserted in the rectal area. There was no biopsy done according to the . Patient stated he had some dysuria that resolved. He had an episode of vomiting which apparently is not an uncommon thing for him. On day of admission he had a fever up to 102 and he was shivering. He was brought into the hospital for further evaluation and treatment. He is currently having some headaches which is better. He denies any cough or any respiratory complaint. No chest pain. No abdominal pain. No diarrhea. 2 blood cultures were done on admission, and one is now reported as growing gram-positive cocci in pairs chains and clusters. Urinalysis unremarkable. LFTs are okay. His WBC is elevated. He had a temperature of 100 yesterday and he is afebrile today. He gets dental cleaning 2x a year. he had a lot of dental work done this year had crown done Infectious disease consultation has been requested to assist with evaluation and treatment of patient with bacteremia. Review of Systems Constitutional: Reports chills, Reports fever(s), Reports headache(s) Eyes: Denies discharge, Denies dry eyes Ears, Nose, Mouth, and Throat: Reports abnormal hearing, Denies difficulty swallowing, Denies nasal congestion, Denies nasal discharge, Denies pain with swallowing, Denies sore throat Cardiovascular: Denies chest pain, Denies shortness of breath Respiratory: Denies chest congestion, Denies cough, Denies shortness of breath Gastrointestinal: Reports vomiting, Denies abdominal pain, Denies difficulty swallowing, Denies loose stools, Denies nausea, Denies pain with swallowing Genitourinary: Reports painful urination, Reports urinary incontinence, Denies penile discharge, Denies scrotal swelling, Denies testicle pain Musculoskeletal: Reports back pain, Denies joint pain, Denies joint swelling Skin/Breast: Denies rash, Denies sores, Denies wounds, Denies yellowing of the skin Neurologic: Reports headache(s), Reports memory loss PMFSH - History History Provided By: Patient - Medical History Medical History: Medical History (Last Reviewed 11/28/18 @ 14:51 by Kamille Vincetn MD) GERD (gastroesophageal reflux disease) HTN (hypertension) - Surgical History Surgical History: Surgical History (Last Reviewed 11/28/18 @ 14:51 by Kamille Vincent MD) H/O lithotripsy Previous back surgery - Family History Family History: Family History (Last Reviewed 11/28/18 @ 14:51 by Kamille Vincent MD) Father Heart disease - Tobacco History Second Hand Smoke Exposure: No Tobacco Use In Past 30 Days: No Smoking Status: Never smoker - Alcohol History How Often Do You Have a Drink Containing Alcohol: Monthly or less - Substance Use History Substance History: No History of Abuse - Travel History Recent Travel in the [place] Within the Last 8 Weeks: No Recent Travel Out of the Country Within the Last 8 Weeks: No - Immunization History Tetanus Immunization: Unsure Medications and Allergies Active Medications: Active Medications Acetaminophen (Tylenol) 650 mg PO Q4H PRN PRN Reason: Temp > 100.4 Al Hydroxide/Mg Hydroxide (Milk Of Magnesia Liq) 30 ml PO Q12H PRN PRN Reason: Mild Constipation Bisacodyl (Dulcolax Supp) 10 mg RECTAL DAILY PRN PRN Reason: SEVERE CONSITIPATION Enalaprilat (Vasotec Inj) 1.25 mg IV.PUSH Q8H PRN PRN Reason: SBP>160, DBP>90 Last Admin: 11/28/18 08:49 Dose: 1.25 mg Piperacillin/Tazobactam/Dextrose (Zosyn 4.5 Gm Premix) 4.5 gm in 100 mls @ 200 mls/hr IV.SIG ONCE RAMAN Last Infusion: 11/27/18 17:00 Dose: Infused Ampicillin Sodium/Sulbactam (Sodium 3 gm/ Sodium Chloride) 100 mls @ 200 mls/ hr IV.SIG Q6H RAMAN Last Infusion: 11/28/18 10:36 Dose: Infused Vancomycin HCl 1,250 mg/ (Sodium Chloride) 262.5 mls @ 250 mls/hr IV.SIG ONCE ONE Stop: 11/28/18 15:02 Last Admin: 11/28/18 14:40 Dose: 250 mls/hr Lactulose (Lactulose Liq) 30 ml PO DAILY PRN PRN Reason: SEVERE CONSITIPATION Levofloxacin (Levaquin) 750 mg PO DAILY@1100 [facility] Last Admin: 11/28/18 11:44 Dose: 750 mg Lisinopril (Prinivil) 10 mg PO DAILY [facility] Last Admin: 11/28/18 11:44 Dose: 10 mg Miscellaneous Information ([facility] Ordered Lab Info) 0 each OTHER ONCE ONE Stop: 12/01/18 13:46 Ondansetron HCl (Zofran Inj) 4 mg IV.PUSH Q6H PRN PRN Reason: NAUSEA OR VOMITING Pantoprazole Sodium (Protonix) 40 mg PO DAILY [facility] Last Admin: 11/28/18 08:33 Dose: 40 mg Pharmacy Profile Note (Vancomycin Consult Pharmacy) 1 each OTHER UNSCH PRN PRN Reason: Pharmacy to dose Sennosides (Senokot) 17.2 mg PO Q12H PRN PRN Reason: Moderate Constipation Sodium Chloride (Ns Flush) 2 ml IV.FLUSH BID [facility] Last Admin: 11/28/18 08:34 Dose: 2 ml Sodium Chloride (Ns Flush) 2 ml IV.FLUSH PRN PRN PRN Reason: FLUSH AFTER USING IV ACCESS Tamsulosin HCl (Flomax) 0.4 mg PO DAILY [facility] Last Admin: 11/28/18 08:33 Dose: 0.4 mg Allergies Allergy/AdvReac Type Severity Reaction Status Date / Time No Known Allergies Allergy Uncoded 10/22/14 11:30 Home Medications Medication Instructions Recorded Confirmed Type lisinopril 10 mg PO DAILY 11/27/18 11/27/18 History pantoprazole [Protonix] 40 mg PO DAILY 11/27/18 11/27/18 History silodosin [Rapaflo] 8 mg PO DAILY 11/27/18 11/27/18 History Exam Vital signs: Vital Signs 11/27/18 14:56 11/27/18 20:00 11/28/18 00:00 Temperature 100.0 F H 97.9 F 97.8 F Pulse Rate 103 H 82 84 Respiratory Rate 18 18 18 Blood Pressure 186/91 H 131/63 133/65 Pulse Oximetry 96 98 99 11/28/18 08:00 11/28/18 12:00 Temperature 98.2 F 97.5 F L Pulse Rate 68 73 Respiratory Rate 18 17 Blood Pressure 172/77 H 146/63 H Pulse Oximetry 96 95 Intake & Output 11/27/18 11/28/18 11/28/18 18:59 06:59 18:59 Intake Total 1340 / 1340 200 / 200 200 / 200 Output Total 200 / 200 600 / 600 Balance 1140 / 1140 -400 / -400 200 / 200 Weight 80.739 kg 67.6 kg Intake: IV 1100 / 1100 200 / 200 200 / 200 Unasyn Inj 3 GM In NS Inj 100 200 / 200 100 / 100 ML @ 200 mls/hr IV.SIG Q6H RAMAN Rx#:[id number] Zosyn 4.5 GM Premix 4.5 gm In 100 / 100 100 ml @ 200 mls/hr IV.SIG ONCE RAMAN Rx#:[id number] NS Inj 1,000 ML @ 1000 mls/hr 1000 / 1000 IV.SIG BOLUS RAMAN Rx#:[id number] Oral 240 / 240 Output: Urine 200 / 200 600 / 600 Other: # Voids 2 # Bowel Movements 2 Weight On Admission 67.6 kg Narrative: Physical examination GENERAL: Patient is a well-nourished, well-developed male, awake and alert, not in respiratory distress. He does not look toxic appearing. SKIN: Warm and dry. No generalized rash, no ecchymoses and no evidence of embolic lesions. HEAD: Atraumatic. Normocephalic. No temporal wasting, or tenderness. EYES: [place] conjunctiva. No petechia or hemorrhage. Pupils equal, round and reactive to light. Extraocular movements full and intact. No scleral icterus. No injection or drainage. EARS, NOSE AND THROAT: Nose without bleeding or purulent nasal discharge. No sinus tenderness. Mucous membranes pink and moist. No oral lesions noted. No exudate. No oral thrush. NECK: Trachea midline. Supple and not tender, no meningeal signs CARDIOVASCULAR: Regular rate and rhythm. Soft murmur at base of the heart. No rubs or gallops heard RESPIRATORY: Clear to auscultation. Breath sounds equal bilaterally. No rales , wheezing or rhonchi ABDOMEN: Soft, non-tender, nondistended. Bowel sounds present and normoactive. No guarding. No rebound. No organomegaly. Mild discomfort in suprapubic region EXTREMITIES: No clubbing, cyanosis, or edema. No joint effusion, has good ROM. No calf tenderness. Well perfused and warm. NEUROLOGICAL: Awake and alert. Cranial nerves grossly intact. Motor grossly within normal limits. PSYCHIATRIC: Normal affect, calm and cooperative. LINE: No evidence of infection Results - Labs CBC & Chem 7: 11/28/18 05:45 11/28/18 05:45 Labs: Laboratory Results - last 24 hr 11/27/18 11/27/18 11/27/18 15:20 15:20 15:20 CBC w Diff Slide review pending WBC 12.9 H RBC 4.89 Hgb 14.4 Hct 43.9 MCV 89.7 MCH 29.3 MCHC 32.7 RDW 13.9 Plt Count 191 MPV 8.9 Neut % (Auto) 88.8 H Lymph % (Auto) 3.1 L [place] % (Auto) 6.3 Eos % (Auto) 0.2 Baso % (Auto) 1.6 Neut # (Auto) 11.5 H Lymph # (Auto) 0.4 L [place] # (Auto) 0.8 Eos # (Auto) 0.0 Baso # (Auto) 0.2 WBC Differential Manual diff final Seg Neuts % (Manual) 88 H Band Neuts % (Manual) 5 Lymphocytes % (Manual) 2 L Monocytes % (Manual) 5 Abs Neuts (Manual) 12.0 H Differential Comment . Platelet Estimate Normal Platelet Morphology Normal Sodium 142 Potassium 3.4 L Chloride 111 H Carbon Dioxide 22.1 Anion Gap 9 BUN 22 H Creatinine 0.93 Estimated GFR 77 L Random Glucose 116 H Lactic Acid 1.5 Calcium 7.8 L Magnesium 1.6 Total Bilirubin 0.8 AST 15 ALT 18 Alkaline Phosphatase 58 Total Protein 7.1 Albumin 3.5 Urine Color Urine Clarity Urine pH Ur Specific [place] Urine Protein Urine Glucose (UA) Urine Ketones Urine Occult Blood Urine Nitrate Urine Bilirubin Urine Urobilinogen Ur Leukocyte Esterase Urine RBC Urine WBC Micro UA Comment Ur Microscopic Review Urine Culture Comments 11/27/18 11/28/18 11/28/18 15:30 05:45 05:45 CBC w Diff Auto diff final WBC 14.6 H RBC 4.53 Hgb 13.8 Hct 40.5 MCV 89.3 MCH 30.5 MCHC 34.1 RDW 13.4 Plt Count 186 MPV 8.3 Neut % (Auto) 84.9 H Lymph % (Auto) 6.8 L [place] % (Auto) 8.1 H Eos % (Auto) 0.1 Baso % (Auto) 0.1 Neut # (Auto) 12.4 H Lymph # (Auto) 1.0 [place] # (Auto) 1.2 H Eos # (Auto) 0.0 Baso # (Auto) 0.0 WBC Differential . Seg Neuts % (Manual) Band Neuts % (Manual) Lymphocytes % (Manual) Monocytes % (Manual) Abs Neuts (Manual) Differential Comment . Platelet Estimate Platelet Morphology Sodium 143 Potassium 3.6 Chloride 109 H Carbon Dioxide 25.6 Anion Gap 8 BUN 18 Creatinine 0.93 Estimated GFR 77 L Random Glucose 116 H Lactic Acid Calcium 8.2 L Magnesium Total Bilirubin 0.7 AST 20 ALT 15 Alkaline Phosphatase 51 Total Protein 6.8 Albumin 3.2 L Urine Color Straw Urine Clarity Clear Urine pH 6.5 Ur Specific [place] 1.010 Urine Protein Negative Urine Glucose (UA) Negative Urine Ketones Negative Urine Occult Blood Trace Urine Nitrate Negative Urine Bilirubin Negative Urine Urobilinogen 0.2 Ur Leukocyte Esterase Negative Urine RBC 0-3 Urine WBC 0-5 Micro UA Comment Culture not ind Ur Microscopic Review Microscopic reviewed Urine Culture Comments Culture not ind - Imaging Impressions Chest X-Ray 11/27/18 15:12 CONCLUSION: No acute intrathoracic disease. Head CT 11/27/18 15:12 CONCLUSION: 1. No focal or acute intracranial hemorrhage. 2. Bilateral cortical atrophy and chronic white matter changes characteristic for patient's age. 3. 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 Assessment and Plan - Plan Impression Sepsis GPC in pairs and chains, C/W Strep - ?related to procedure - ?endocarditis - UA ok - LFT ok Recommendation Echo Repeat BC CT A/P Continue Unasyn and Gabyo get records from his urologist Follow C/S Monitor progress I will follow along with you Thank you for this consultation
[2018-11-28] MEDS ORDERED: Diatrizoate Meglum/Diatrizoate Sod Liq 9 ML UDC PO ONE (15:04)
--- NOTE | 2018-11-28 20:10 | CT ---
EXAM DATE: 11/28/2018 8:01 PM EST AGE/SEX: 88 years / Male INDICATIONS: Fever. General weakness. Evaluate for abscess. CLINICAL DATA: This is the patient's initial encounter. Patient reports that signs and symptoms have been present for 2 days and indicates a pain score of 0/10. MEDICAL/SURGICAL HISTORY: Gastroesophageal reflux disease. Renal calculi. Hypertension. Litho tripsy. Back surgery. ORAL CONTRAST: Prescribed oral contrast ingested. RADIATION DOSE: 13.49 CTDI (mGy) COMPARISON: No prior exams available for comparison. TECHNIQUE: Multiple contiguous axial images were obtained through the abdomen and pelvis following b olus infusion of 92 ml Omnipaque 350 (iohexol) nonionic water-soluble contrast as a single exam dos e. Prescribed oral contrast ingested. Using automated exposure control and adjustment of the mA and/ or kV according to patient size, radiation dose was kept as low as reasonably achievable to obtain op timal diagnostic quality images. DICOM format image data is available electronically for review and comparison. FINDINGS: Minimal basilar scarring or atelectasis. No pleural or pericardial effusion. Mild coronary calcificat ions. Multiple small hepatic cysts. Spleen unremarkable. Adrenals, kidneys and pancreas demonstrate no acut e findings. Small bilateral renal cysts. No calcified gallstones or biliary ductal dilatation. No abnormal fluid collections within the abdomen and pelvis. No free air or free fluid. No adenopathy . No bowel obstruction. 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 There is a small amount of air in the bladder which could be related to recent catheterization or uri nary tract infection. CONCLUSION: 1. Small amount of air in the bladder which may be related to recent catheterization or urinary trac t infection. Small right-sided bladder diverticulum. 2. No abscess identified within the abdomen and pelvis. 3. Small hepatic cysts. No bowel obstruction, free air or free fluid. Electronically signed by: Jimmy Webb MD Board Certified Radiologist 11/28/2018 8:09 PM EST
--- NOTE | 2018-11-28 20:30 | ECHRPT ---
Indication: Sepsis Possible Endocarditis CONCLUSIONS Normal left ventricular size. Wall thickness is normal. The left ventricular systolic function is hyperdynamic with an estimated ejection fraction in the ra nge of 65- 70%. No regional wall motion abnormalities are present. There is trace tricuspid valve regurgitation. The estimated pulmonary arterial pressure is 37 mmHg. BP: / HR: Rhythm: MEASUREMENTS (Male / Female) Normal Values Technical Quality:Fair 2D ECHO LV Diastolic Diameter PLAX 4.2 cm 4.2 - 5.9 / 3.9 - 5.3 cm LV Systolic Diameter PLAX 2.9 cm IVS Diastolic Thickness 1.0 cm 0.6 - 1.0 / 0.6 - 0.9 cm LVPW Diastolic Thickness 1.0 cm 0.6 - 1.0 / 0.6 - 0.9 cm LV Relative Wall Thickness 0.5 RV Internal Dim ED PLAX 3.6 cm LVOT Diameter 2.2 cm Aortic Root Diameter 3.2 cm LA Systolic Diameter LX 3.4 cm 3.0 - 4.0 / 2.7 - 3.8 cm M-MODE AV Cusp Separation MM 1.9 cm DOPPLER AV Peak Velocity 134.0 cm/s AV Peak Gradient 7.2 mmHg LVOT Peak Velocity 128.0 cm/s LVOT Peak Gradient 6.6 mmHg AV Area Cont Eq pk 3.6 cm Mitral E Point Velocity 81.9 cm/s Mitral A Point Velocity 91.8 cm/s Mitral E to A Ratio 0.9 LV E' Lateral Velocity 5.0 cm/s Mitral E to LV E' Lateral Ratio 16.5 LV E' Septal Velocity 5.0 cm/s Mitral E to LV E' Septal Ratio 16.5 TR Peak Velocity 259.0 cm/s TR Peak Gradient 26.8 mmHg Right Atrial Pressure 10.0 mmHg Pulmonary Artery Systolic Pressu 36.8 mmHg Right Ventricular Systolic Press 36.8 mmHg PV Peak Velocity 118.0 cm/s PV Peak Gradient 5.6 mmHg FINDINGS LEFT VENTRICLE Normal left ventricular size. Wall thickness is normal. The left ventricular systolic function is hyperdynamic with an estimated ejection fraction in the ra nge of 65- 70%. No regional wall motion abnormalities are present. RIGHT VENTRICLE Normal right ventricular size and systolic function. LEFT ATRIUM The left atrial size is normal. RIGHT ATRIUM The right atrial size is normal. ATRIAL SEPTUM Normal atrial septal thickness without atrial level shunting by limited color doppler interrogation. AORTA The aortic root and proximal ascending aorta are normal in size on limited imaging. MITRAL VALVE Structurally normal mitral valve. No mitral valve stenosis or regurgitation. AORTIC VALVE The aortic valve is not well visualized. Trileaflet aortic valve. No aortic valve stenosis or regurgitation. TRICUSPID VALVE There is trace tricuspid valve regurgitation. The estimated pulmonary arterial pressure is 37 mmHg. PULMONARY VALVE Trivial pulmonary valve regurgitation. VESSELS The inferior vena cava was not well visualized. PERICARDIUM No pericardial effusion. Lonnie Cope MD (Electronically Signed) Final Date:28 November 2018 20:29
[2018-11-29] MEDS: Ampicillin/Sulbactam Inj 3 GM in Sodium Chloride 0.9% Inj 100 ML IV.SIG SCH ×4 (02:13→20:43)
[2018-11-29 03:01] LABS: Free PSA/PSA Ratio 0.46 ratio
[2018-11-29] MEDS: Lisinopril 10 MG Tablet PO SCH (08:58)
--- NOTE | 2018-11-29 10:13 | P.PNIM ---
Subjective Interval history: f/u; bacteremia in no acute distress. denies abdominal pain/ nausea/vomiting/ cough. no fever today. Physical Exam Vital signs: Last Vital Signs Temp 97.0 F L 11/29/18 08:00 Pulse 82 11/29/18 08:00 Resp 18 11/29/18 08:00 BP 183/84 H 11/29/18 08:00 Pulse Ox 97 11/29/18 08:00 Intake & Output 11/27/18 11/28/18 11/29/18 11/30/18 06:59 06:59 06:59 06:59 Intake Total 1540 / 1540 1842.5 / 1842.5 Output Total 800 / 800 950 / 950 Balance 740 / 740 892.5 / 892.5 Weight 67.6 kg 67.6 kg Constitutional no acute distress Routine Respiratory Exam Present CTA bilaterally Routine Cardiovascular Exam Present RRR Routine Abdominal Exam Present soft Routine Extremities Exam Comments: no pedal edema. Routine Neurological Exam Present alert and oriented X3 Results Labs CBC & Chem 7: 11/28/18 05:45 11/28/18 05:45 Labs: Microbiology 11/27/18 15:25 Blood - Peripheral Aerobic Blood Culture - Preliminary No growth in 1 day 11/27/18 15:25 Blood - Peripheral Anaerobic Blood Culture - Preliminary gram positive cocci 11/27/18 15:20 Blood - Peripheral Aerobic Blood Culture - Preliminary No growth in 1 day 11/27/18 15:20 Blood - Peripheral Anaerobic Blood Culture - Preliminary gram positive cocci Imaging Imaging: Impressions Abdomen/Pelvis CT 11/28/18 00:00 CONCLUSION: 1. Small amount of air in the bladder which may be related to recent catheterization or urinary tract infection. Small right-sided bladder diverticulum. 2. No abscess identified within the abdomen and pelvis. 3. Small hepatic cysts. No bowel obstruction, free air or free fluid. Assessment and Plan Plan A/P SIRS criteria of tachycardia, leukocytosis possible aspiration pneumonitis Possible prostatitis Gram-positive bacteremia -patient had recent Cystoscopy. - continue IV antibiotics. -echo with EF 65%/ no evidence of vegetation. -ID following. Hypertension. Chronic. continue Lisinopril/ will add Amlodipine. GERD. Chronic. Continue home medications. BPH. chronic. cont home meds. Progress Note: Quality VTE Deep Vein Thrombosis/Pulmonary Embolism Present on Admission: No
[2018-11-29] MEDS: amLODIPine 5 MG Tablet PO SCH (11:01)
[2018-11-29] MEDS: levoFLOXacin 750 MG Tablet PO SCH (11:01)
[2018-11-29] MEDS: Vancomycin Inj 1,250 MG in Sodium Chlor 0.9% Inj 250 ML IV.SIG SCH (14:02)
[2018-11-30] MEDS: Ampicillin/Sulbactam Inj 3 GM in Sodium Chloride 0.9% Inj 100 ML IV.SIG SCH ×3 (01:46→14:09)
[2018-11-30 06:45] LABS: Baso # (Auto) 0.3 th/mm3 (0.0-0.2); Baso % (Auto) 4.5 % (0.0-2.0); Eos % (Auto) 0.5 % (0.0-4.0); Hematocrit 43.6 % (39.0-51.0); Hemoglobin 14.3 gm/dL (13.0-17.0); Lymph # (Auto) 0.9 th/mm3 (1.0-4.8); Lymph % (Auto) 12.2 % (9.0-44.0); Mean Corpuscular HGB Conc 32.7 % (32.0-36.0); Mean Corpuscular Hemoglobin 29.2 pg (27.0-34.0); Mean Corpuscular Volume 89.4 fL (80.0-100.0); Mono # (Auto) 0.6 th/mm3 (0.0-0.9); Mono % (Auto) 7.9 % (0.0-8.0); Neut # (Auto) 5.9 th/mm3 (1.8-7.7); Neut % (Auto) 74.9 % (16.0-70.0); Platelet Count 206 th/mm3 (150-450); Red Blood Count 4.88 mil/mm3 (4.50-5.90); Red Cell Distribution Width 13.5 % (11.6-17.2); White Blood Count 7.8 th/mm3 (4.0-11.0)
[2018-11-30] MEDS: amLODIPine 5 MG Tablet PO SCH (08:35)
[2018-11-30] MEDS: Lisinopril 10 MG Tablet PO SCH (08:35)
--- NOTE | 2018-11-30 10:13 | P.PNIM ---
Subjective Interval history: in no acute distress. denies pain. remains afebrile. no new complaints. Physical Exam Vital signs: Last Vital Signs Temp 98.6 F 11/30/18 00:00 Pulse 86 11/30/18 00:00 Resp 21 11/30/18 00:00 BP 171/78 H 11/30/18 00:00 Pulse Ox 96 11/30/18 00:00 Intake & Output 11/28/18 11/29/18 11/30/18 12/01/18 06:59 06:59 06:59 06:59 Intake Total 1540 / 1540 1842.5 / 1842.5 662.5 / 662.5 Output Total 800 / 800 950 / 950 Balance 740 / 740 892.5 / 892.5 662.5 / 662.5 Weight 67.6 kg 67.6 kg Constitutional no acute distress Routine Respiratory Exam Present CTA bilaterally Routine Cardiovascular Exam Present RRR Routine Abdominal Exam Present soft Routine Extremities Exam Comments: no pedal edema. Routine Neurological Exam Present alert and oriented X3 Results Labs CBC & Chem 7: 11/30/18 06:09 11/28/18 05:45 Labs: Microbiology 11/27/18 15:25 Blood - Peripheral Aerobic Blood Culture - Preliminary pleomorphic gram positive rods 11/27/18 15:25 Blood - Peripheral Anaerobic Blood Culture - Final Viridans streptococcus [facility] 11/27/18 15:20 Blood - Peripheral Aerobic Blood Culture - Preliminary No growth in 3 days 11/27/18 15:20 Blood - Peripheral Anaerobic Blood Culture - Final Viridans streptococcus [facility] 11/28/18 12:55 Blood - Peripheral Aerobic Blood Culture - Preliminary No growth in 1 day 11/28/18 12:55 Blood - Peripheral Anaerobic Blood Culture - Preliminary No growth in 1 day 11/28/18 12:45 Blood - Peripheral Aerobic Blood Culture - Preliminary No growth in 1 day 11/28/18 12:45 Blood - Peripheral Anaerobic Blood Culture - Preliminary No growth in 1 day Assessment and Plan Plan A/P SIRS criteria of tachycardia, leukocytosis possible aspiration pneumonitis Possible prostatitis Strep Viridans Bacteremia -patient had recent Cystoscopy. - continue IV antibiotics. -echo with EF 65%/ no evidence of vegetation. -CT of the abdomen with no acute abnormality. -ID following. Hypertension. Chronic. continue Lisinopril/ added Amlodipine. GERD. Chronic. Continue home medications. BPH. chronic. cont home meds. Discharge Planning: when cleared by ID. Progress Note: Quality VTE Deep Vein Thrombosis/Pulmonary Embolism Present on Admission: No
--- NOTE | 2018-11-30 11:44 | P.DIET ---
Nutritional Evaluation Type of nutrition evaluation: initial Nutrition screening: Weight Loss > 10 lbs Screening comments: 1 Wt loss screen Subjective Subjective Comments: Patient reports a good appetite but also reports unintentional weight loss within the past two months. Objective - Diagnosis Fever, general weakness - Objective % IBW: 90 (IBW: 166lbs) Energy Needs - Lower Range (kCal/kg): 25 Energy Needs - Upper Range (kCal/kg): 30 Lower Limit kCal/kg (kCals): 1,690 Upper Limit kCal/kg (kCals): 2,028 Lower Limit Protein Factor (Grams per Kg): 1.1 Upper Limit Protein Factor (Grams per Kg): 1.3 Lower Protein Needs (Protein): 74 Upper Protein Needs (Protein): 88 Fluid Factor (ml/kg): 28 Estimated Fluid Needs (ml): 1,899 Dietitian Reviewed in Medical Record: Current diet, Curent medications, Intake & Output, Labs, Medical history Diet Order: Regular Assessment Assessment: Pt admitted for fever, general weakness. He reports a good appetite but also wt loss. Pt's nutritional needs as assessed above. His PO intake has been good, he is eating 75-100% of his meals. His PO intake appears to be adequate to meet his nutritional needs at this time. Please consult dietitian if needed.
[2018-11-30] MEDS: levoFLOXacin 750 MG Tablet PO SCH (11:46)
[2018-11-30] MEDS: Vancomycin Inj 1,250 MG in Sodium Chlor 0.9% Inj 250 ML IV.SIG SCH (14:08)
--- NOTE | 2018-11-30 17:48 | P.PNID ---
Subjective Remarks: Patient is an 88-year-old male, brought into the hospital for evaluation of high fevers associated with rigors. Patient apparently was referred to a urologist for evaluation of urinary incontinence. On November 26 he was seen again, and had a procedure done. He had a cystoscopy, and there was also something inserted in the rectal area. There was no biopsy done according to the . Patient stated he had some dysuria that resolved. He had an episode of vomiting which apparently is not an uncommon thing for him. On day of admission he had a fever up to 102 and he was shivering. He was brought into the hospital for further evaluation and treatment. He is currently having some headaches which is better. He denies any cough or any respiratory complaint. No chest pain. No abdominal pain. No diarrhea. 2 blood cultures were done on admission, and one is now reported as growing gram-positive cocci in pairs chains and clusters. Urinalysis unremarkable. LFTs are okay. His WBC is elevated. He had a temperature of 100 yesterday and he is afebrile today. He gets dental cleaning 2x a year. he had a lot of dental work done this year had crown done Infectious disease consultation has been requested to assist with evaluation and treatment of patient with bacteremia. Notes reviewed Temps ok C/O MASON - frontal location No photophobia, no neck pain CT head acute findings; old lacunar infarcts BC with Viridans Strep ESR 30 CRP 11.3 Echo no vegetation seen Antibiotics: Levaquin Vancomycin Unasyn Past Medical History: GERD (gastroesophageal reflux disease) HTN (hypertension) Lithotripsy Previous back surgery Urinary incontinence Allergies/Adverse Reactions: Allergies No Known Allergies Allergy (Uncoded 10/22/14 11:30) Objective Vital Signs 11/29/18 20:00 11/30/18 00:00 11/30/18 08:00 Temperature 97.7 F 98.6 F 97.8 F Pulse Rate 100 H 86 92 H Respiratory Rate 19 21 20 Blood Pressure 180/86 H 171/78 H 160/90 H Pulse Oximetry 99 96 98 11/30/18 12:00 11/30/18 16:00 Temperature 97.8 F 98.6 F Pulse Rate 96 H 90 Respiratory Rate 20 20 Blood Pressure 169/80 H 143/77 H Pulse Oximetry 97 96 Intake & Output 11/29/18 11/30/18 11/30/18 18:59 06:59 18:59 Intake Total 462.5 / 462.5 200 / 200 462.5 / 462.5 Balance 462.5 / 462.5 200 / 200 462.5 / 462.5 Intake: IV 462.5 / 462.5 200 / 200 462.5 / 462.5 Unasyn Inj 3 GM In NS Inj 100 200 / 200 200 / 200 200 / 200 ML @ 200 mls/hr IV.SIG Q6H RAMAN Rx#:[id number] Vancomycin Inj 1,250 MG In NS 262.5 / 262.5 262.5 / 262.5 Inj 250 ML @ 250 mls/hr IV.SIG Q24H RAMAN Rx#:[id number] Other: Date of Last Bowel Movement 11/29/17 11/28/18 12:55 Blood - Peripheral Aerobic Blood Culture - Preliminary No growth in 2 days 11/28/18 12:55 Blood - Peripheral Anaerobic Blood Culture - Preliminary No growth in 2 days 11/28/18 12:45 Blood - Peripheral Aerobic Blood Culture - Preliminary No growth in 2 days 11/28/18 12:45 Blood - Peripheral Anaerobic Blood Culture - Preliminary No growth in 2 days 11/27/18 15:25 Blood - Peripheral Aerobic Blood Culture - Preliminary pleomorphic gram positive rods 11/27/18 15:25 Blood - Peripheral Anaerobic Blood Culture - Final Viridans streptococcus [facility] 11/27/18 15:20 Blood - Peripheral Aerobic Blood Culture - Preliminary No growth in 3 days 11/27/18 15:20 Blood - Peripheral Anaerobic Blood Culture - Final Viridans streptococcus [facility] 11/27/18 15:30 Nasal Wash Influenza Types A,B Antigen - Final Negative for FLU A and B antigen Infection due to influenza A or B cannot be ruled out since the antigen present in the sample may be below the detection limit of the test. Lab - Hematology Results 11/29/18 11/30/18 06:24 06:09 CBC w Diff Auto diff final WBC 7.8 RBC 4.88 Hgb 14.3 Hct 43.6 MCV 89.4 MCH 29.2 MCHC 32.7 RDW 13.5 Plt Count 206 MPV 9.0 Neut % (Auto) 74.9 H Lymph % (Auto) 12.2 [place]row % (Auto) 7.9 Eos % (Auto) 0.5 Baso % (Auto) 4.5 H Neut # (Auto) 5.9 Lymph # (Auto) 0.9 L [place]row # (Auto) 0.6 Eos # (Auto) 0.0 Baso # (Auto) 0.3 H WBC Differential . Differential Comment . ESR 30 H Lab - Chemistry Results 11/27/18 11/29/18 19:43 06:24 C-Reactive Protein 11.30 H Free PSA 2.2 Total PSA 4.8 PSA Free/Total Ratio 0.46 Imaging: ITS Impressions Chest X-Ray 11/27/18 15:12 CONCLUSION: No acute intrathoracic disease. Head CT 11/27/18 15:12 CONCLUSION: 1. No focal or acute intracranial hemorrhage. 2. Bilateral cortical atrophy and chronic white matter changes characteristic for patient's age. 3. 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 . Abdomen/Pelvis CT 11/28/18 00:00 CONCLUSION: 1. Small amount of air in the bladder which may be related to recent catheterization or urinary tract infection. Small right-sided bladder diverticulum. 2. No abscess identified within the abdomen and pelvis. 3. Small hepatic cysts. No bowel obstruction, free air or free fluid. Physical Exam: GENERAL: awake and alert, not in respiratory distress. SKIN: Warm and dry. No generalized rash, no ecchymoses and no evidence of embolic lesions. HEAD: Atraumatic. Normocephalic. No temporal wasting, or tenderness. EYES: [place] conjunctiva. No petechia or hemorrhage. Pupils equal, round and reactive to light. Extraocular movements full and intact. No scleral icterus. No injection or drainage. EARS, NOSE AND THROAT: Mucous membranes pink and moist. No oral lesions noted. No exudate. No oral thrush. 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 Supple and not tender, no meningeal signs CARDIOVASCULAR: Regular rate and rhythm. Soft murmur at base of the heart. No rubs or gallops heard RESPIRATORY: Clear to auscultation. Breath sounds equal bilaterally. No rales , wheezing or rhonchi ABDOMEN: Soft, non-tender, nondistended. Bowel sounds present and normoactive. No guarding. No rebound. No organomegaly. Mild discomfort in suprapubic region EXTREMITIES: No clubbing, cyanosis, or edema. No joint effusion, has good ROM. No calf tenderness. NEUROLOGICAL: Awake and alert. Cranial nerves grossly intact. Motor grossly within normal limits. PSYCHIATRIC: Normal affect, calm and cooperative. LINE: No evidence of infection Assessment and Plan - Plan Impression Strep viridans Sepsis , worrisome for IE - ?related to procedure - ?endocarditis - UA ok - LFT ok MASON, etiology? Recent cystoscopy - UA normal Recommendation Follow C/S Needs ERICH MRI brain to evaluate MASON, concern with emboli IV Rocephin Stop other Abx Monitor progress D/W RN D/W Mariama PFEIFFER
[2018-12-01] MEDS: Lisinopril 10 MG Tablet PO SCH (08:45)
[2018-12-01] MEDS: amLODIPine 5 MG Tablet PO SCH (08:45)
--- NOTE | 2018-12-01 09:50 | P.PNIM ---
Subjective Interval history: f/u; Bacteremia in no acute distress. remains afebrile. BP trend noted. d/w the RN. Physical Exam Vital signs: Last Vital Signs Temp 99.1 F 12/01/18 08:00 Pulse 72 12/01/18 08:00 Resp 18 12/01/18 08:00 BP 189/84 H 12/01/18 08:00 Pulse Ox 97 12/01/18 08:00 Intake & Output 11/29/18 11/30/18 12/01/18 12/02/18 06:59 06:59 06:59 06:59 Intake Total 1842.5 / 1842.5 662.5 / 662.5 682.5 / 682.5 Output Total 950 / 950 900 / 900 300 / 300 Balance 892.5 / 892.5 662.5 / 662.5 -217.5 / -217.5 -300 / -300 Weight 67.6 kg 85.3 kg Constitutional no acute distress Routine Respiratory Exam Present CTA bilaterally Routine Cardiovascular Exam Present RRR Routine Abdominal Exam Present soft Routine Extremities Exam Comments: no pedal edema. Routine Neurological Exam Present alert and oriented X3 Results Labs CBC & Chem 7: 11/30/18 06:09 11/28/18 05:45 Labs: Microbiology 11/28/18 12:55 Blood - Peripheral Aerobic Blood Culture - Preliminary No growth in 2 days 11/28/18 12:55 Blood - Peripheral Anaerobic Blood Culture - Preliminary No growth in 2 days 11/28/18 12:45 Blood - Peripheral Aerobic Blood Culture - Preliminary No growth in 2 days 11/28/18 12:45 Blood - Peripheral Anaerobic Blood Culture - Preliminary No growth in 2 days 11/27/18 15:25 Blood - Peripheral Aerobic Blood Culture - Preliminary pleomorphic gram positive rods 11/27/18 15:25 Blood - Peripheral Anaerobic Blood Culture - Final Viridans streptococcus grp 11/27/18 15:20 Blood - Peripheral Aerobic Blood Culture - Preliminary No growth in 3 days 11/27/18 15:20 Blood - Peripheral Anaerobic Blood Culture - Final Viridans streptococcus grp Assessment and Plan Plan A/P SIRS criteria of tachycardia, leukocytosis possible aspiration pneumonitis Possible prostatitis Strep Viridans Bacteremia -patient had recent Cystoscopy. - continue IV Rocephin. -echo with EF 65%/ no evidence of vegetation- cardiology consulted for ERICH. -CT of the abdomen with no acute abnormality. -MRI brain pending. -ID following. Hypertension. Chronic/uncontrolled- continue Lisinopril/ will dc Amlodipine and change to Procardia- continue to monitor and adjust the regimen as needed. GERD. Chronic. Continue home medications. BPH. chronic. cont home meds. Discharge Planning: when cleared by ID/ pending w/u. Progress Note: Quality VTE Deep Vein Thrombosis/Pulmonary Embolism Present on Admission: No
[2018-12-01] MEDS ORDERED: Pharmacy Ordered Lab Info OTHER ONE (13:45)
[2018-12-01] MEDS ORDERED: Chlorhexidine Gluconate 2% 1 Pack (2 Cloths) TOPICAL ONE (14:11)
[2018-12-01] MEDS ORDERED: Sodium Chlor 0.9% Inj 500 ML IV.SIG SCH (15:00)
[2018-12-01 15:03] LABS: Glomerular Filtration Rate Greater Than 89 mL/min (>89)
--- NOTE | 2018-12-01 17:43 | ECHRPT ---
Indication: POSS SEPSIS, ENDOCARDITIS CONCLUSIONS The left ventricular systolic function is normal with an estimated ejection fraction in the range of 55-60%. Trace mitral valve regurgitation. There is trace tricuspid valve regurgitation. No evidence of endocarditis BP: / HR: Rhythm: Sinus Technical Quality: Medications Complications Proc. Components Anesthesia at the beside for sedation FINDINGS LEFT VENTRICLE Normal left ventricular size. The left ventricular systolic function is normal with an estimated ejection fraction in the range of 55-60%. No regional wall motion abnormalities are present. RIGHT VENTRICLE Grossly normal LEFT ATRIUM The left atrial size is normal. RIGHT ATRIUM The right atrial size is normal. ATRIAL APPENDAGES Normal left atrial appendage size with no evidence of thrombus formation. ATRIAL SEPTUM The interatrial septum not well visualized. AORTA The aortic root and proximal ascending aorta are normal in size on limited imaging. MITRAL VALVE Structurally normal mitral valve. Trace mitral valve regurgitation. No mitral valve stenosis. AORTIC VALVE Trileaflet aortic valve. Sclerosis/thickening noted of the left coronary cusp of the aortic valve, no independent motion, not felt to be endocarditis. No aortic valve stenosis. No aortic valve regurgitation. TRICUSPID VALVE Structurally normal tricuspid valve. There is trace tricuspid valve regurgitation. No tricuspid valv e stenosis. VESSELS The pulmonary valve is not well visualized. Trivial pulmonary valve regurgitation. Jeffry Dejesus DO (Electronically Signed) Final Date:01 December 2018 17:41
--- NOTE | 2018-12-02 01:06 | MB ---
cc: Jeffry Dejesus DO DATE: 12/01/2018 REASON FOR CONSULTATION: Bacteremia, consideration of transesophageal echocardiogram. HISTORY OF PRESENT ILLNESS: Vamsi Dickey is a pleasant 88-year-old male who presented to the [facility] due to high fevers associated with rigors. The patient went recently to his urologist for an evaluation of urinary incontinence. Apparently, he had a cystoscopy early in November. He originally had some dysuria that had since resolved. He was having a fever of up to 102 degrees with shivering and so he was brought to the hospital for further evaluation. He underwent blood cultures, which show viridans Streptococcus and was seen by infectious disease. They asked that he be considered for transesophageal echocardiogram. PAST MEDICAL HISTORY: 1. GERD. 2. Hypertension. PAST SURGICAL HISTORY: 1. History of lithotripsy. 2. Back surgery. ALLERGIES: NO KNOWN DRUG ALLERGIES. MEDICATIONS: 1. Rapaflo 8 mg daily. 2. Protonix 40 mg daily. 3. Lisinopril 10 mg daily. FAMILY HISTORY: Denies sudden cardiac within the family. SOCIAL HISTORY: Denies tobacco, alcohol or drug abuse. REVIEW OF SYSTEMS: Fourteen systems were reviewed including osteopathic. Pertinent positives and negatives above, otherwise negative. PHYSICAL EXAMINATION: VITAL SIGNS: Temperature 98.2, heart rate 90, blood pressure 170/80, respirations 18, pulse oximetry 98% on room air. GENERAL: The patient appears well, in no acute distress. Alert, awake and oriented x 3. HEENT: Extraocular muscles intact. Mucous membranes moist. NECK: Supple. No JVD at 45 degrees. No carotid bruits heard bilaterally. Carotid upstroke is brisk in nature. HEART: Regular rate and rhythm. Positive first and second heart sounds with no noted murmurs, gallops or rubs. LUNGS: Clear to auscultation bilaterally. No wheezes, rales or rhonchi. ABDOMEN: Soft, nontender, nondistended. No organomegaly noted. EXTREMITIES: Show no clubbing, cyanosis or edema. NEUROLOGIC: No focal deficits. SKIN: Warm, dry and intact. OSTEOPATHIC: No kyphoscoliosis, lordosis or paraspinal tender points. LABORATORY DATA: Hemoglobin 14.3, hematocrit 43.6, platelets 206. Potassium 3.6, BUN 18, creatinine 0.93. Electrocardiogram (11/27/2018 at 1527 hours): Sinus tachycardia, right bundle branch block. IMPRESSION: 1. Fever with chills. 2. Bacteremia with viridans Streptococcus. 3. Benign prostatic hypertrophy. 4. Gastroesophageal reflux disease. 5. Hypertension. RECOMMENDATIONS: 1. Mr. Dickey presented with fevers and chills and was found to have bacteremia with viridans Streptococcus. 2. He has been transferred to [facility] for consideration of transesophageal echocardiogram. 3. Risks, benefits, and alternatives have been explained to him and he consents to such. 4. Depending on the results of the transesophageal echocardiogram, if negative, he can be transferred back to [facility] from my standpoint. 5. He has been significantly hypertensive and his amlodipine has been changed to Procardia-XL, he will continue on lisinopril daily. Thank you for allowing me to see Vamsi Dickey. If there are any questions, please do not hesitate to call. DO ZHEN Lopez/rw , 11:41 PM , 11:50 PM
[2018-12-02] MEDS: Lisinopril 10 MG Tablet PO SCH ×2 (07:49→09:22)
--- NOTE | 2018-12-02 09:02 | P.PNIM ---
Subjective Interval history: f/u; bacteremia in no acute distress. denies pain. looks comfortable. no fever. Physical Exam Vital signs: Last Vital Signs Temp 99.1 F 12/02/18 00:00 Pulse 87 12/02/18 00:00 Resp 18 12/02/18 00:00 BP 114/58 L 12/02/18 00:00 Pulse Ox 94 L 12/02/18 00:00 Intake & Output 11/30/18 12/01/18 12/02/18 12/03/18 06:59 06:59 06:59 06:59 Intake Total 662.5 / 662.5 682.5 / 682.5 190 / 190 Output Total 900 / 900 1500 / 1500 Balance 662.5 / 662.5 -217.5 / -217.5 -1310 / -1310 Weight 85.3 kg Constitutional no acute distress Routine Respiratory Exam Present CTA bilaterally Routine Cardiovascular Exam Present RRR Routine Abdominal Exam Present soft Routine Extremities Exam Comments: no pedal edema. Routine Neurological Exam Present alert Results Labs CBC & Chem 7: 11/30/18 06:09 12/01/18 14:27 Labs: Microbiology 11/28/18 12:55 Blood - Peripheral Aerobic Blood Culture - Preliminary No growth in 3 days 11/28/18 12:55 Blood - Peripheral Anaerobic Blood Culture - Preliminary No growth in 3 days 11/28/18 12:45 Blood - Peripheral Aerobic Blood Culture - Preliminary No growth in 3 days 11/28/18 12:45 Blood - Peripheral Anaerobic Blood Culture - Preliminary No growth in 3 days 11/27/18 15:20 Blood - Peripheral Aerobic Blood Culture - Preliminary No growth in 4 days 11/27/18 15:20 Blood - Peripheral Anaerobic Blood Culture - Final Viridans streptococcus grp Procedures Procedures: ERICH Assessment and Plan Plan A/P SIRS criteria of tachycardia, leukocytosis possible aspiration pneumonitis Possible prostatitis Strep Viridans Bacteremia -patient had recent Cystoscopy. - continue IV Rocephin. -echo with EF 65%/ no evidence of vegetation- cardiology consulted for ERICH; which was also negative for endocarditis. -CT of the abdomen with no acute abnormality. -MRI brain pending. -ID following. Hypertension. Chronic and now better controlled- continue Lisinopril and Procardia- continue to monitor and adjust the regimen as needed. GERD. Chronic. Continue home medications. BPH. chronic. cont home meds. Discharge Planning: when cleared by ID/ pending w/u. Progress Note: Quality VTE Deep Vein Thrombosis/Pulmonary Embolism Present on Admission: No
[2018-12-02] MEDS ORDERED: Gadobutrol PF 10 MMOL/10 ML Vial (for RAD) IV.SIG ONE (14:15)
--- NOTE | 2018-12-02 14:45 | MR ---
EXAM DATE: 12/02/2018 2:28 PM EST AGE/SEX: 88 years / Male INDICATIONS: Cephalgia. Post surgery on 11/26/17. CLINICAL DATA: This is the patient's subsequent encounter. Patient reports that signs and symptoms h ave been present for 1 week and indicates a pain score of 3/10. MEDICAL/SURGICAL HISTORY: Hypertension. Gastroesophageal reflux disease. . lumbar discectomy COMPARISON: [facility], CT HEAD W/O CONTRAST, 11/27/2018. . TECHNIQUE: Multiplanar, multisequence examination of the brain was performed without and with 8.5 ml Gadavist (gadobutrol) contrast as a single exam dose. 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 No significant mass effect is identified. Moderate periventricular and subcortical white matter smal l vessel ischemic changes are noted bilaterally. Cerebral atrophy is again noted. Scattered old lacun ar infarcts are noted within the bilateral basal ganglia. There is no acute hemorrhage or midline barb ft. No acute infarct is noted. No abnormal enhancing lesion is noted. CONCLUSION: 1. 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 No significant mass effect is identified. 2. Moderate periventricular and subcortical white matter small vessel ischemic changes are noted zoran aterally. 3. Cerebral atrophy is again noted. 4. Scattered old lacunar infarcts are noted within the bilateral basal ganglia. 5. No acute hemorrhage, acute infarct, midline shift or abnormal enhancing mass lesion. Electronically signed by: Trip Vale MD Board Certified Radiologist 12/02/2018 2:44 PM EST
[2018-12-02 17:54] VITALS: RESP 20
--- NOTE | 2018-12-03 08:15 | P.PNID ---
Subjective Remarks: Patient is an 88-year-old male, brought into the hospital for evaluation of high fevers associated with rigors. Patient apparently was referred to a urologist for evaluation of urinary incontinence. On November 26 he was seen again, and had a procedure done. He had a cystoscopy, and there was also something inserted in the rectal area. There was no biopsy done according to the . No more fevers No headaches Has Herpes labialis Reviewed ERICH and MRI Repeat Blood cultures remain neg Antibiotics: Ceftriaxone Lines: Peripheral line Past Medical History: GERD (gastroesophageal reflux disease) HTN (hypertension) Lithotripsy Previous back surgery Urinary incontinence Allergies/Adverse Reactions: Allergies No Known Allergies Allergy (Uncoded 10/22/14 11:30) Objective Vital Signs 12/02/18 12:00 12/02/18 16:00 12/03/18 00:00 Temperature 98.7 F 98 F 97.9 F Pulse Rate 91 H 95 H 94 H Respiratory Rate 22 20 20 Blood Pressure 130/70 140/74 153/69 H Pulse Oximetry 95 95 96 Intake & Output 12/02/18 12/03/18 12/03/18 18:59 06:59 18:59 Intake Total 640 / 640 340 / 340 Output Total 600 / 600 Balance 40 / 40 340 / 340 Weight 87.2 kg Intake: IV 100 / 100 Rocephin Inj 2,000 MG In NS Inj 100 / 100 100 ML @ 200 mls/hr IV.SIG Q24H RAMAN Rx#:[id number] Oral 640 / 640 240 / 240 Output: Urine 600 / 600 Other: # Voids 3 11/27/18 15:25 Blood - Peripheral Aerobic Blood Culture - Final Corynebacterium not JK 11/27/18 15:25 Blood - Peripheral Anaerobic Blood Culture - Final Viridans streptococcus grp 11/28/18 12:55 Blood - Peripheral Aerobic Blood Culture - Preliminary No growth in 4 days 11/28/18 12:55 Blood - Peripheral Anaerobic Blood Culture - Preliminary No growth in 4 days 11/28/18 12:45 Blood - Peripheral Aerobic Blood Culture - Preliminary No growth in 4 days 11/28/18 12:45 Blood - Peripheral Anaerobic Blood Culture - Preliminary No growth in 4 days 11/27/18 15:20 Blood - Peripheral Aerobic Blood Culture - Final No growth in 5 days 11/27/18 15:20 Blood - Peripheral Anaerobic Blood Culture - Final Viridans streptococcus grp Lab - Chemistry Results 12/01/18 14:27 Creatinine 0.80 Estimated GFR Greater than 89 Imaging: ITS Impressions Chest X-Ray 11/27/18 15:12 CONCLUSION: No acute intrathoracic disease. Head CT 11/27/18 15:12 CONCLUSION: 1. No focal or acute intracranial hemorrhage. 2. Bilateral cortical atrophy and chronic white matter changes characteristic for patient's age. 3. 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 . Abdomen/Pelvis CT 11/28/18 00:00 CONCLUSION: 1. Small amount of air in the bladder which may be related to recent catheterization or urinary tract infection. Small right-sided bladder diverticulum. 2. No abscess identified within the abdomen and pelvis. 3. Small hepatic cysts. No bowel obstruction, free air or free fluid. Head MRI 12/02/18 00:00 CONCLUSION: 1. 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 No significant mass effect is identified. 2. Moderate periventricular and subcortical white matter small vessel ischemic changes are noted bilaterally. 3. Cerebral atrophy is again noted. 4. Scattered old lacunar infarcts are noted within the bilateral basal ganglia. 5. No acute hemorrhage, acute infarct, midline shift or abnormal enhancing mass lesion. Physical Exam: GENERAL: awake and alert, not in respiratory distress. SKIN: Warm and dry. Has herpes labiaalis HEAD: Atraumatic. Normocephalic. No temporal wasting, or tenderness. EYES: [place] conjunctiva. No petechia or hemorrhage. Pupils equal, round and reactive to light. Extraocular movements full and intact. No scleral icterus. No injection or drainage. EARS, NOSE AND THROAT: Mucous membranes pink and moist. No oral lesions noted. No exudate. No oral thrush. 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 Supple and not tender, no meningeal signs CARDIOVASCULAR: Regular rate and rhythm. Soft murmur at base of the heart. No rubs or gallops heard RESPIRATORY: Clear to auscultation. Breath sounds equal bilaterally. No rales , wheezing or rhonchi ABDOMEN: Soft, non-tender, nondistended. Bowel sounds present and normoactive. No guarding. No rebound. No organomegaly. Mild discomfort in suprapubic region EXTREMITIES: No clubbing, cyanosis, or edema. No joint effusion, has good ROM. No calf tenderness. NEUROLOGICAL: Awake and alert. Cranial nerves grossly intact. Motor grossly within normal limits. PSYCHIATRIC: Normal affect, calm and cooperative. LINE: No evidence of infection Assessment and Plan (1) Streptococcal bacteremia Status: Acute Code(s): R78.81 - Bacteremia; B95.5 - Unspecified streptococcus as the cause of diseases classified elsewhere (2) Herpes labialis Status: Acute Code(s): B00.1 - Herpesviral vesicular dermatitis - Plan Repeat blood cultures negative ERICH neg for endocarditis MRI reviewed Patient can be changed to Cefuroxime 500 mg po bid x 2 weeks Valacyclovir 1 g po bid x 2 doses for the herpes labialis
[2018-12-03] MEDS ORDERED: valACYclovir 500 MG Tab PO SCH (09:00)
--- NOTE | 2018-12-03 09:38 | P.PNIM ---
Subjective Interval history: in no acute distress. denies pain. no fever. Physical Exam Vital signs: Vital Signs 12/02/18 12:00 12/02/18 16:00 12/03/18 00:00 Temperature 98.7 F 98 F 97.9 F Pulse Rate 91 H 95 H 94 H Respiratory Rate 22 20 20 Blood Pressure 130/70 140/74 153/69 H Pulse Oximetry 95 95 96 Intake & Output 12/02/18 12/03/18 12/03/18 18:59 06:59 18:59 Intake Total 640 / 640 340 / 340 Output Total 600 / 600 Balance 40 / 40 340 / 340 Weight 87.2 kg Intake: IV 100 / 100 Rocephin Inj 2,000 MG In NS Inj 100 / 100 100 ML @ 200 mls/hr IV.SIG Q24H RAMAN Rx#:[id number] Oral 640 / 640 240 / 240 Output: Urine 600 / 600 Other: # Voids 3 Constitutional no acute distress Routine HEENT Exam Comments: vesicular lesions noted around the lips. Routine Respiratory Exam Present CTA bilaterally Routine Cardiovascular Exam Present RRR Routine Abdominal Exam Present soft Routine Extremities Exam Comments: no pedal edema. Routine Neurological Exam Present alert and oriented X3 Results Labs CBC & Chem 7: 11/30/18 06:09 12/01/18 14:27 Labs: Microbiology 11/27/18 15:25 Blood - Peripheral Aerobic Blood Culture - Final Corynebacterium not JK 11/27/18 15:25 Blood - Peripheral Anaerobic Blood Culture - Final Viridans streptococcus grp 11/28/18 12:55 Blood - Peripheral Aerobic Blood Culture - Preliminary No growth in 4 days 11/28/18 12:55 Blood - Peripheral Anaerobic Blood Culture - Preliminary No growth in 4 days 11/28/18 12:45 Blood - Peripheral Aerobic Blood Culture - Preliminary No growth in 4 days 11/28/18 12:45 Blood - Peripheral Anaerobic Blood Culture - Preliminary No growth in 4 days 11/27/18 15:20 Blood - Peripheral Aerobic Blood Culture - Final No growth in 5 days 11/27/18 15:20 Blood - Peripheral Anaerobic Blood Culture - Final Viridans streptococcus grp Imaging Imaging: Impressions Head MRI 12/02/18 00:00 CONCLUSION: 1. 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 No significant mass effect is identified. 2. Moderate periventricular and subcortical white matter small vessel ischemic changes are noted bilaterally. 3. Cerebral atrophy is again noted. 4. Scattered old lacunar infarcts are noted within the bilateral basal ganglia. 5. No acute hemorrhage, acute infarct, midline shift or abnormal enhancing mass lesion. Procedures Procedures: ERICH Assessment and Plan (1) Streptococcal bacteremia: Code(s): R78.81 - Bacteremia; B95.5 - Unspecified streptococcus as the cause of diseases classified elsewhere Status: Acute (2) Herpes labialis: Code(s): B00.1 - Herpesviral vesicular dermatitis Status: Acute Plan A/P SIRS criteria of tachycardia, leukocytosis possible aspiration pneumonitis Possible prostatitis Strep Viridans Bacteremia -patient had recent Cystoscopy. - treated with IV Rocephin; will switch to po Cefuroxime upon discharge.. -echo with EF 65%/ no evidence of vegetation- cardiology consulted for ERICH; which was also negative for endocarditis. -CT of the abdomen with no acute abnormality. -MRI brain with no acute abnormality. -ID follow- up appreciated; cleared for discharge. Herpes Labialis; start on Acyclovir Hypertension. Chronic and now better controlled- continue Lisinopril . GERD. Chronic. Continue home medications. BPH. chronic. cont home meds. Discharge Planning: dc home today. f/u; pcp. see med list. d/w the patient and . time spent 35 min. Progress Note: Quality VTE Deep Vein Thrombosis/Pulmonary Embolism Present on Admission: No
[2018-12-03] MEDS: Lisinopril 10 MG Tablet PO SCH (09:39)
--- NOTE | 2018-12-03 09:40 | P.DS ---
DS: Providers Date of admission: 11/28/18 10:46 Primary care physician: [facility] Consults: 11/28/18 10:46 Consult to Infectious Diseases Routine Consulting Provider: Kamille Vincent Reason for Consultation: Gram-positive bacteremia Notified:: Service Spoke with:: AARON Date Notified:: 11/28/18 Time Notified:: 10:52 Ordering Provider: JHONY 11/30/18 17:35 Consult to Cardiology Routine Consulting Provider: Mj Kinsey Does the patient have a Exhauster who follows them?: No Preferred Size Roller Operator:: Machine Guide [employer] Winder Physician Reason for Consultation: High-grade viridans strep bacteremia. Patient will require ERICH Notified:: Service Spoke with:: Eulogio Date Notified:: 11/30/18 Time Notified:: 17:50 Ordering Provider: BALJIT Brief History from admission: 88-year-old male with history of GERD, hypertension, BPH who is brought in by his . Patient had vomiting this morning which apparently is not uncommon for him. Following this he had a fever up to 102, what sounds to be Rigors. Patient also reports dysuria following a cystoscopy yesterday. denies that patient had a biopsy yesterday. Patient also reports a dull frontal headache worse this morning which is now almost completely resolved-denies any neck stiffness. Patient reports a history of occasional headaches. DS: Diagnosis Discharge Diagnosis (1) Streptococcal bacteremia: Status: Acute (2) Herpes labialis: Status: Acute DS: Summary SIRS criteria of tachycardia, leukocytosis possible aspiration pneumonitis Possible prostatitis Strep Viridans Bacteremia -patient had recent Cystoscopy. - treated with IV Rocephin; will switch to po Cefuroxime upon discharge.. -echo with EF 65%/ no evidence of vegetation- cardiology consulted for ERICH; which was also negative for endocarditis. -CT of the abdomen with no acute abnormality. -MRI brain with no acute abnormality. -ID follow- up appreciated; cleared for discharge. Herpes Labialis; start on Acyclovir Hypertension. Chronic and now better controlled- continue Lisinopril . GERD. Chronic. Continue home medications. BPH. chronic. cont home meds. Time Spent with Patient Total time spent providing and/or coordinating discharge services:35 min. Quality: VTE Deep Vein Thrombosis/Pulmonary Embolism Present on Admission: No Exam Narrative Exam Narrative: patient is in no acute distress. vesicular lesions noted around the lips. abdomen is soft. bilateral air entry present on lung exam. no pedal edema. Results Procedures completed during hospitalization: ERICH Labs on day of discharge: Preliminary micro results at discharge 11/28/18 12:55 Aerobic Blood Culture - Preliminary Blood - Peripheral No growth in 4 days Anaerobic Blood Culture - Preliminary No growth in 4 days 11/28/18 12:45 Aerobic Blood Culture - Preliminary Blood - Peripheral No growth in 4 days Anaerobic Blood Culture - Preliminary No growth in 4 days Impressions ITS Impressions Chest X-Ray 11/27/18 15:12 CONCLUSION: No acute intrathoracic disease. Head CT 11/27/18 15:12 CONCLUSION: 1. No focal or acute intracranial hemorrhage. 2. Bilateral cortical atrophy and chronic white matter changes characteristic for patient's age. 3. 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 . Abdomen/Pelvis CT 11/28/18 00:00 CONCLUSION: 1. Small amount of air in the bladder which may be related to recent catheterization or urinary tract infection. Small right-sided bladder diverticulum. 2. No abscess identified within the abdomen and pelvis. 3. Small hepatic cysts. No bowel obstruction, free air or free fluid. Head MRI 12/02/18 00:00 CONCLUSION: 1. 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 No significant mass effect is identified. 2. Moderate periventricular and subcortical white matter small vessel ischemic changes are noted bilaterally. 3. Cerebral atrophy is again noted. 4. Scattered old lacunar infarcts are noted within the bilateral basal ganglia. 5. No acute hemorrhage, acute infarct, midline shift or abnormal enhancing mass lesion. Discharge Plan Discharge Disposition Patient Disposition: Discharge Home Discharge Condition Condition: Fair Discharge Order Discharge Orders: Discharge Order (Routine); Ordered 12/03/18 Ordered By: Clark Soriano Physicians Team Primary Care Provider: [facility] [place] Attending Provider: Clakr Soriano Other Providers: Kamille Vincent ; Mj Kinsey Rxs /Orders / Referrals /Forms Prescriptions: New valacyclovir [Valtrex] 500 mg Tablet 1,000 mg PO Q12HR Qty: 2 RF: 0 cefuroxime axetil 500 mg tablet 500 mg PO BID 20 Days Qty: 40 RF: 0 Continue pantoprazole [Protonix] 40 mg Tablet,Delayed Release (Dr/Ec) 40 mg PO DAILY RF: 0 lisinopril 10 mg Tablet 10 mg PO DAILY RF: 0 silodosin [Rapaflo] 8 mg Capsule 8 mg PO DAILY RF: 0 Referrals: [facility] [Other] - See Instructions [facility] [Primary Care Provider] - See Instructions Discharge Interventions Interventions: Discharge Planning - Case Management Last Done: 12/01/18 12:38 Status ED Status: Left Department
[2018-12-03 10:52] VITALS: BP 144/75; PULSE 92; TEMP 97.7; O2SAT 94
== END 2018-12-03 11:58 | disposition home or self-care (01) | DRG 872 ==
LOC: PHED 14:49 → PHEDA 14:49 → PH3 18:00
PROVIDERS: ADMIT Internal Medicine; ATTEND Internal Medicine
DX: F03.90 Unspecified dementia, unspecified severity, without behavioral disturbance, psychotic disturbance, mood disturbance, and anxiety; I10 Essential (primary) hypertension; K21.9 Gastro-esophageal reflux disease without esophagitis; R51 Headache; A40.8 Other streptococcal sepsis; N40.0 Benign prostatic hyperplasia without lower urinary tract symptoms; B00.1 Herpesviral vesicular dermatitis; R00.0 Tachycardia, unspecified
CPT/HCPCS: 70450; 70553; 71010; 71045; 74177; 76937; 80053; 81001; 82565; 83605; 83735; 84153; 84154; 85025; 85651; 85652; 86140; 86403; 87040; 87186; 87205; 87275; 87276; 87493; 87633; 87804; 93005; 93306; 93312; 93320; 93325; A9585; J0295; J0696; J2543; J3370; J7030; J7050; Q9963; Q9967